=== PATIENT | male | born 1950 | race Asian ===

== ENCOUNTER 2016-12-21 05:36 | Inpatient (IN) | payer MEDICARE, MEDICAID ==
[~2016-12-21] VITALS: Ht 175.3 cm; Wt 72.1 kg
[2016-12-21 05:42] VITALS: BP 171/91
--- NOTE | 2016-12-21 05:42 | Emergency Room Report ---
History of Present Illness General Chief Complaint: Dyspnea/Respdistress Source: EMS Present Illness HPI 66-year-old male presents ED complaining of shortness of breath. Started at the convalescent home around 5 AM today. Her EMS patient was diaphoretic with crackles in both lungs. Hypertensive and tachycardic. Patient has a dialysis shunt in the left arm but does not get regular dialysis. No fevers or chills. No chest pain. No other aggravating relieving factors. Denies any other associated symptoms Allergies: Coded Allergies: No Known Allergies (Unverified , 12/21/16) Patient History Past Medical History: DM, HTN, renal disease Past Surgical History: none Pertinent Family History: none Social History: Denies: alcohol use, drug use, smoking Immunizations: UTD Reviewed Nursing Documentation: PMH: Agreed, PSxH: Agreed Nursing Documentation-PMH Hx Hypertension: Yes Hx Diabetes: Yes Hx Dialysis: Yes - ESRD Review of Systems All Other Systems: negative except mentioned in HPI Physical Exam Vital Signs Date Time Temp Pulse Resp B/P Pulse Ox O2 Delivery O2 Flow Rate FiO2 12/21/16 05:32 97.7 145 31 171/91 95 Non-Rebreather 15.0 Sp02 EP Interpretation: reviewed, normal General Appearance: alert, GCS 15, mild distress Head: normocephalic Eyes: bilateral eye PERRL, bilateral eye normal inspection ENT: normal ENT inspection Neck: full range of motion Respiratory: accessory muscle use, crackles Cardiovascular #1: tachycardia Gastrointestinal: normal inspection Rectal: deferred Genitourinary: no CVA tenderness Musculoskeletal: normal inspection Neurologic: alert, oriented x3, responsive, motor strength/tone normal, sensory intact, speech normal Psychiatric: normal inspection Skin: normal inspection Lymphatic: normal inspection Procedures Critical Care Time Critical Care Time i. I feel this is a highly complex case requiring extensive working including EKG/Rhythm strip, Xray/CT/US, Blood/urine lab work, repeat exams while in ED, and administration of strong opiates/narcotics for pain control, admission to hospital or close patient follow up. Total time: 30 min bedside evaluation and treatment excludes procedures (EKG). Reason for critical care: respiratory distress, hypoxia Possible complications: hypotension, hypertension, OH, shock, arrhythmias, metabolic acidosis, end organ damage, respiratory failure. Interventions: BIPAP, labs, EKG, CXR, Abx Course: patient here with resp distress. crackles in bilateral lung evans. h/o ESRD. tachypneic. tachycardic. started on BIPAP. ABG shows acidosis. leukocytosis, BNP elevated. improved on BIPAP. given abx. Consultations: nursing staff, EMS, family Performed by: Dr Moncada Tolerated well condition = seriousl j. because of unstable vital signs this patient had a condition that could potentially threaten life or limb. I feel this is a critical patient who required my full attention while patient was considered critical. Total Critical Care Time excluding procedures was greater than 35 minutes Medical Decision Making Diagnostic Impression: Primary Impression: Respiratory distress Additional Impression: CHF exacerbation Qualified Codes: I50.9 - Heart failure, unspecified ER Course Hospital Course 66-year-old M presenting to ED with respiratory distress, crackles Differential diagnoses include: Pneumonia, CHF exacerbation, pneumothorax, fluid overload Clinical course Patient placed on stretcher. On vehicle monitor technician with hypoxia on room air and tachycardia. After initial history and physical, I ordered BIPAP. I ordered labs, EKG, chest x-ray, blood cultures Labs -leukocytosis noted, hemoglobin/hematocrit stable, BUN/Cr elevated, lactate okay troponins negative, BNP elevated CXR - bilateral Pulmonary congestion. Iinfiltrate Tachypnea and tachycardia improving with BiPAP. Respiratory status improved. Antibiotics given Case discussed with Dr. Mancini and he agreed to the patient to his service for further care and support I feel this is a highly complex case requiring extensive working including EKG/ Rhythm strip, Xray/CT/US, Blood/urine lab work, repeat exams while in ED, and administration of strong opiates/narcotics for pain control, admission to hospital or close patient follow up. Diagnosis - respiratory distress, CHF exacerbation Patient admitted to [facility] in serious condition Labs Test 12/21/16 05:37 12/21/16 05:40 12/21/16 13:00 12/21/16 16:05 Arterial Blood pH 7.220 (7.350-7.450) 7.370 (7.350-7.450) 7.411 (7.350-7.450) Arterial Blood Partial Pressure CO2 45.4 mmHg (35.0-45.0) 30.2 mmHg (35.0-45.0) 29.8 mmHg (35.0-45.0) Arterial Blood Partial Pressure O2 319.8 mmHg (75.0-100.0) 124.2 mmHg (75.0-100.0) 85.7 mmHg (75.0-100.0) Arterial Blood HCO3 18.2 mmol/L (22.0-26.0) 17.4 mmol/L (22.0-26.0) 18.5 mmol/L (22.0-26.0) Arterial Blood Oxygen Saturation 98.8 % (92.0-98.0) 98.2 % (92.0-98.0) 96.4 % (92.0-98.0) Arterial Blood Base Excess -9.3 -6.7 -5.0 Moy Test Positive Positive Positive White Blood Count 19.5 K/UL (4.8-10.8) Red Blood Count 4.13 M/UL (4.70-6.10) Hemoglobin 12.9 G/DL (14.2-18.0) Hematocrit 39.8 % (42.0-52.0) Mean Corpuscular Volume 96 FL (80-99) Mean Corpuscular Hemoglobin 31.2 PG (27.0-31.0) Mean Corpuscular Hemoglobin Concent 32.4 G/DL (32.0-36.0) Red Cell Distribution Width 13.7 % (11.6-14.8) Platelet Count 351 K/UL (150-450) Mean Platelet Volume 5.6 FL (6.5-10.1) Neutrophils (%) (Auto) % (45.0-75.0) Lymphocytes (%) (Auto) % (20.0-45.0) Monocytes (%) (Auto) % (1.0-10.0) Eosinophils (%) (Auto) % (0.0-3.0) Basophils (%) (Auto) % (0.0-2.0) Differential Total Cells Counted 100 Neutrophils % (Manual) 71 % (45-75) Lymphocytes % (Manual) 22 % (20-45) Monocytes % (Manual) 4 % (1-10) Eosinophils % (Manual) 3 % (0-3) Basophils % (Manual) 0 % (0-2) Band Neutrophils 0 % (0-8) Platelet Estimate Adequate Platelet Morphology Normal Red Blood Cell Morphology Normal Sodium Level 140 mEQ/L (135-145) Potassium Level 4.6 mEQ/L (3.4-4.9) Chloride Level 105 mEQ/L (98-107) Carbon Dioxide Level 20 mEQ/L (20-30) Anion Gap 15 (5-15) Blood Urea Nitrogen 38 mg/dL (7-23) Creatinine 1.7 mg/dL (0.7-1.2) Estimat Glomerular Filtration Rate 40.5 mL/min (>60) Glucose Level 196 mg/dL (74-106) Lactic Acid Level 1.10 mmol/L (0.66-2.22) Calcium Level 8.8 mg/dL (8.6-10.2) Total Bilirubin 0.5 mg/dL (0.0-1.2) Aspartate Amino Transf (AST/SGOT) 49 U/L (5-40) Alanine Aminotransferase (ALT/SGPT) 76 U/L (3-41) Alkaline Phosphatase 345 U/L (40-129) Total Creatine Kinase 41 U/L (38-174) Creatine Kinase MB 2.5 ng/mL (< 6.7) Creatine Kinase MB Relative Index 6.0 Troponin I < 0.30 ng/mL (<=0.30) Pro-B-Type Natriuretic Peptide 8129 pg/mL (0-125) Total Protein 7.7 g/dL (6.6-8.7) Albumin 4.1 g/dL (3.5-5.2) Globulin 3.6 g/dL Albumin/Globulin Ratio 1.1 (1.0-2.7) EKG Diagnostic Results Rate: tachycardiac Rhythm: NSR ST Segments: no acute changes ASA given to the pt in ED: No Rhythm Strip Diag. Results EP Interpretation: yes Rhythm: NSR, no PVC's, no ectopy Chest X-Ray Diagnostic Results Chest X-Ray Ordered: Yes # of Views/Limited/Complete: 1 View EP Interpretation: Yes Interpretation: other - cardiomegaly. ? infiltrate. pulmonary congestion Indication: Shortness of Breath Impression: Other - pulmonary congestion. pneumonia Interpreting ER Provider: Beto Moncada MD Last Vital Signs Date Time Temp Pulse Resp B/P Pulse Ox O2 Delivery O2 Flow Rate FiO2 12/21/16 05:32 97.7 145 31 171/91 95 Non-Rebreather 15.0 Status: improved Disposition: ADMITTED INPATIENT Condition: Serious BETO MONCADA M.D. Dec 21, 2016 05:42
[2016-12-21 05:48] LABS: ABG PCO2 45.4 mmHg (35.0-45.0)
[2016-12-21 05:49] LABS: ABG ALLEN TEST POSITIVE; ABG BASE EXCESS -9.3
[2016-12-21] MEDS ORDERED: VITAMIN B-12250 MCG PO (05:50)
[2016-12-21] MEDS ORDERED: FERROUS SULFAT325 MG ORAL (05:50)
[2016-12-21] MEDS ORDERED: HUMULIN R100 UNIT/1 SUBQ ×2 (05:50→06:09)
[2016-12-21] MEDS ORDERED: ULORIC80 MG ORAL ×2 (05:50→06:09)
[2016-12-21] MEDS ORDERED: TOPROL XL25 MG ORAL (05:50)
[2016-12-21] MEDS ORDERED: PROBIOTIC1 EAC2 PO (05:50)
[2016-12-21] MEDS ORDERED: FOLIC ACID1 MG ORAL ×2 (05:50→06:09)
[2016-12-21] MEDS ORDERED: TAMSULOSIN HCL0.4 MG ORAL (05:50)
[2016-12-21] MEDS ORDERED: LANTUS SOL100 UNIT/1 SUBQ ×2 (05:50→06:09)
[2016-12-21] MEDS ORDERED: VITAMIN B 6 PO (05:50)
[2016-12-21] MEDS ORDERED: PLAVIX75 MG ORAL (05:50)
[2016-12-21] MEDS ORDERED: NEPHRO-VITE RX1 EAC1 PO (05:50)
[2016-12-21] MEDS ORDERED: TRADJENTA5 MG PO ×2 (05:50→06:09)
[2016-12-21] MEDS ORDERED: LYRICA75 M1 ORAL ×2 (05:50→06:09)
[2016-12-21] MEDS ORDERED: LIPITOR20 MG ORAL ×2 (05:50→06:09)
[2016-12-21] MEDS ORDERED: ASPIRIN EC81 MG ORAL ×2 (05:50→06:09)
[2016-12-21] MEDS ORDERED: SODIUM BICARBO650 MG PO (05:57)
[2016-12-21] MEDS ORDERED: ZINC SULFATE220 M1 ORAL (05:57)
[2016-12-21 05:59] LABS: MEAN CORPUSCULAR HEMOGLOBIN 31.2 PG (27.0-31.0); MEAN CORPUSCULAR HGB CONC 32.4 G/DL (32.0-36.0); MEAN CORPUSCULAR VOLUME 96 FL (80-99); MEAN PLATELET VOLUME 5.6 FL (6.5-10.1); PLATELET COUNT 351 K/UL (150-450); RED BLOOD COUNT 4.13 M/UL (4.70-6.10); RED CELL DISTRIBUTION WIDTH 13.7 % (11.6-14.8); WHITE BLOOD COUNT 19.5 K/UL (4.8-10.8)
[2016-12-21] MEDS ORDERED: MAALOX ADVANCE770 ML PO (06:02)
[2016-12-21] MEDS ORDERED: NORCO 5-325 TA1 EACH ORAL (06:02)
[2016-12-21] MEDS ORDERED: LACTULOSE20 GM/301 ORAL (06:02)
[2016-12-21] MEDS ORDERED: ACETAMINOPHEN325 M1 ORAL (06:02)
[2016-12-21] MEDS ORDERED: IRON325 M1 PO (06:09)
[2016-12-21] MEDS ORDERED: NEPHROVITE1 TAB ORAL (06:09)
[2016-12-21] MEDS ORDERED: ACIDOPHILUS1 EAC6 PO (06:09)
[2016-12-21 06:32] LABS: ALBUMIN/GLOBULIN RATIO 1.1 (1.0-2.7); CALCIUM 8.8 mg/dL (8.6-10.2); CREATININE 1.7 mg/dL (0.7-1.2); GLOMERULAR FILTRATION RATE 40.5 mL/min (>60); POTASSIUM 4.6 mEQ/L (3.4-4.9); TOTAL PROTEIN 7.7 g/dL (6.6-8.7)
[2016-12-21 06:33] LABS: TROPONIN I < 0.30 ng/mL (<=0.30)
[2016-12-21 06:43] LABS: CKMB 2.5 ng/mL (< 6.7)
[2016-12-21 06:56] VITALS: BP 138/64
[2016-12-21 07:29] LABS: BAND NEUTROPHILS % (MANUAL) 0 % (0-8); BASOPHILS % (MANUAL) 0 % (0-2); EOSINOPHILS % (MANUAL) 3 % (0-3); LYMPHOCYTES % (MANUAL) 22 % (20-45); NEUTROPHILS % (MANUAL) 71 % (45-75); PLATELET ESTIMATE ADEQUATE; PLATELET MORPHOLOGY NORMAL; TOTAL CELLS COUNTED 100
[2016-12-21 08:00] VITALS: BP 116/76
[2016-12-21 12:00] VITALS: BP 123/69
[2016-12-21] MEDS ORDERED: D5NS 1,000 ML IV SCH (13:00)
[2016-12-21] MEDS ORDERED: Milk of Magnesia 30ml Ud ORAL PRN (13:15)
[2016-12-21 13:18] LABS: ABG BASE EXCESS -6.7; ABG PCO2 30.2 mmHg (35.0-45.0)
[2016-12-21 13:19] LABS: ABG ALLEN TEST POSITIVE
[2016-12-21] MEDS ORDERED: Vancomycin 1250mg/D5W 275ml IVPB SCH ×2 (13:30)
[2016-12-21] MEDS: Aspirin Baby 81mg ORAL SCH (13:52)
[2016-12-21] MEDS: Metolazone 5mg tab ORAL ONE ×2 (14:51→15:00)
[2016-12-21] MEDS ORDERED: Piperacillin/Tazobactam 3.375 GM in D5W 110 ML IVPB SCH (15:00)
[2016-12-21] MEDS ORDERED: Norco 5mg/325mg tab ORAL PRN (15:15)
[2016-12-21 16:00] VITALS: BP 132/73
[2016-12-21 16:21] LABS: ABG ALLEN TEST POSITIVE; ABG PCO2 29.8 mmHg (35.0-45.0)
[2016-12-21] MEDS: NovoLOG Insulin Flexpen SUBQ SCH ×2 (16:43→20:52)
[2016-12-21] MEDS: DuoNeb 0.5-3(2.5)mg/3ml neb HHN SCH ×3 (16:53→23:28)
[2016-12-21] MEDS: Nitroglycerin 2% oint pkt TOPIC SCH (17:21)
[2016-12-21] MEDS: Lyrica 75mg cap ORAL SCH (17:22)
--- NOTE | 2016-12-21 19:22 | Consultation ---
Consult Note Assessment/Plan Brief nephrology consult: Impression: 1) CKD IV most likely due to diabetic nephropathy 2) Previous [place] has recovered 3) Acute pulmonary edema 4) S/P recent PCI of coronaries Plan: Serial cardiac enzymes Lasix 80 mg IV Q8 x3 TTE UA #[id number] WENDI PONCE Dec 21, 2016 19:22
--- NOTE | 2016-12-21 19:45 | Consultation ---
DATE OF CONSULTATION: 12/21/2016 CONSULTING PHYSICIAN: Livan Mancini M.D. REFERRING PHYSICIAN: Jacob Camp M.D. REASON FOR CONSULTATION: Congestive heart failure in the setting of ischemic cardiomyopathy. HISTORY OF PRESENT ILLNESS: This is a 66-year-old English male. He has severe coronary disease and apparently had a myocardial infarction several months ago. He had a complicated percutaneous coronary intervention of several vessels. He developed heart failure and renal failure. He was started on hemodialysis. He was then discharged to a [place] [facility] for [facility]. Subsequently, he apparently was hospitalized at [facility] and his renal function improved. He has been off hemodialysis since with creatinine levels in the range of 1.5 to 2.5. The patient started smoking again several days ago at the [place] [facility]. Today, he developed shortness of breath and was transferred to the emergency room here. He had no chest pain. No fevers. No chills. No sputum production, but was significantly acidotic and hypoxic and placed on BiPAP support. PAST MEDICAL HISTORY: 1. Insulin-requiring diabetes mellitus. 2. Diabetic neuropathy. 3. Chronic kidney disease with prior history of hemodialysis. 4. He has an AV fistula. 5. COPD. 6. Hypertension. 7. Coronary artery disease. 8. Compression fracture. 9. Hyperlipidemia. 10. BPH. ALLERGIES: None known. FAMILY HISTORY: Noncontributory. SOCIAL HISTORY: He is . He does have a smoking history, 50-pack years estimate. No alcohol or substance abuse. He has prior advanced directives for DNR, but has revoked it recently due to his improved condition. REVIEW OF SYSTEMS: No fevers or chills. No history of retinopathy. No history of seizures or stroke. He is on anti-lipid drugs. He is a diabetic, on insulin. There is a prior history of dialysis. He has not had any change in bowel habits. He has had prior coronary stenting as noted above and is on dual anti-platelet therapy. He has not been on steroids, but has been on bronchodilators in the past. PHYSICAL EXAMINATION: VITAL SIGNS: Blood pressure initially 171/91, pulse 145, respiratory rate 31, and afebrile. Presently, blood pressure 116/76, pulse 97, respiratory rate 21, and afebrile. NECK: Jugular venous pressure elevated. LUNGS: With bilateral rales. CARDIAC: Regular rhythm and rate. Normal S1 and S2 with a fourth heart sound. ABDOMEN: Soft and nontender. EXTREMITIES: Palpable bruit over the left upper extremity. Extremities with no edema. NEUROLOGIC: Symmetric strength. LABORATORY AND DIAGNOSTIC DATA: BUN 38, creatinine 1.7, potassium 4.6, alkaline phosphatase 345, AST and ALT 49/76. Pro-natriuretic peptide 8129. Albumin 4.1. Troponin negative. Lactic acid 1.1. White count 19.5 and hemoglobin 12.9. ABG 7.22/45/319. IMPRESSION: 1. Acute respiratory insufficiency. 2. Hypoxia. 3. Acute on chronic respiratory acidosis. 4. Chronic obstructive pulmonary disease with exacerbation. 5. Possible pneumonia. 6. Acute on chronic diastolic congestive heart failure. 7. Secondary sinus tachycardia. 8. Malignant range hypertension, improving. 9. History of coronary artery disease with prior coronary stenting. 10. Insulin-requiring diabetes mellitus with complications. 11. History of renal failure, on hemodialysis. PLAN: 1. BiPAP support. 2. Diuresis. 3. Insulin coverage. 4. Empiric antibiotics. 5. Bronchodilators. 6. DVT prophylaxis. 7. Respiratory hygiene. 8. Continue dual antiplatelet therapy, statin drug, and beta-blockade. 9. Abdominal ultrasound. 10. Monitor renal parameters and volume status closely. Livan Mancini M.D. DR: TANMAY JOB#: [id number] CC:
[2016-12-21 20:00] VITALS: BP 126/65
--- NOTE | 2016-12-21 20:30 | History and Physical Report ---
DATE OF ADMISSION: 12/21/2016 CHIEF COMPLAINT: Shortness of breath and respiratory failure HISTORY OF PRESENT ILLNESS: The patient is a 66-year-old male. He has a history of hypertensive heart disease, chronic kidney disease, and ischemic cardiomyopathy. He was transferred with complaints of sudden onset of shortness of breath. The patient has a history of end-stage renal disease, but recently was taken off of dialysis. He has a history of ischemic cardiomyopathy, status post 6 stents. On the day of admission, he became suddenly short of breath, was transferred by paramedics to [facility]. There in the emergency room, he was placed on BiPAP, he had x-ray evidence of either pneumonia or congestive heart failure. He has been started on broad-spectrum IV antibiotic therapy. He is now admitted for further evaluation and care. He is currently on BiPAP, but appears comfortable. He denies any fevers or chills. He has had a mild nonproductive cough. PAST MEDICAL HISTORY: As above. PAST SURGICAL HISTORY: Includes a history of left AV fistula. CURRENT MEDICATIONS: Reconciled and reviewed. ALLERGIES: None. FAMILY HISTORY: None. SOCIAL HISTORY: Negative for tobacco, ethanol, or drugs. REVIEW OF SYSTEMS: General: No fever or chills. HEENT: No headaches or visual changes. Cardiopulmonary: No chest pain. Positive shortness of breath. No heart palpitations. Gastrointestinal: No nausea or vomiting. Genitourinary: No urgency or frequency. Musculoskeletal: No muscular pain or swelling. Neurologic: No evidence of seizures. PHYSICAL EXAMINATION: VITAL SIGNS: Temperature 97.7, pulse 92, respirations 21, and blood pressure 123/69. GENERAL: The patient is a well-developed male, in no apparent distress. He is awake, alert, and oriented x4. His pupils are equal, round, and reactive to light. Oropharynx clear. NECK: Supple. There is no jugular venous distention. HEART: Regular rate and rhythm. LUNGS: With significantly diminished breath sounds at the bases. ABDOMEN: Soft, nontender, and nondistended. EXTREMITIES: Without clubbing or cyanosis. There is a left upper extremity AV fistula. LABORATORY DATA: The white count was 20,000, hemoglobin 12. ABG showed a pH of 7.37, PCO2 of 30, PO2 of 124, bicarbonate of 17, and O2 saturation of 98%. Sodium is 140, potassium 4.6, and creatinine is 1.7. Natriuretic peptide level is 8000. AST was 49 and ALT was 76. ASSESSMENT: This is an elderly male, admitted with history of ischemic cardiomyopathy, chronic kidney disease, and hypertension, admitted with shortness of breath and respiratory failure secondary to pneumonia, congestive heart failure, or some combination of both. PLAN: Intravenous antibiotics. Cautious diuresis. BiPAP as needed. Follow up cultures. Continue respiratory treatments. Cardiology consultation. We will check an echo. Monitor serial enzymes. Jacob Camp M.D. DR: BUDDY JOB#: [id number] CC:
[2016-12-21] MEDS: Atorvastatin 20mg tab ORAL SCH (20:52)
[2016-12-21] MEDS: Tamsulosin 0.4mg cap ORAL SCH (20:52)
[2016-12-21 21:32] LABS: TROPONIN I < 0.30 ng/mL (<=0.30)
[2016-12-22] VITALS: BP 124/61
--- NOTE | 2016-12-22 00:15 | Consultation ---
DATE OF CONSULTATION: 12/21/2016 NEPHROLOGY CONSULTATION CONSULTING PHYSICIAN: Timoteo Clement M.D. REASON OF CONSULT: The patient with some underlying kidney dysfunction, has presented with some increasing shortness of breath. HISTORY OF PRESENT ILLNESS: This is a very pleasant 66-year-old Spanish gentleman that I had privilege to see during his admission at [facility] at beginning of 11/2016. He is a resident of convalescent home. At this point, he is getting rehabilitation in the convalescent setting and as a matter of fact, [facility] for management of high risk and multivessel coronary artery disease. He underwent coronary artery stent placement mainly in the LAD and he was also found to have an ejection fraction of about 27%. At [facility], he underwent a PermCath placement and AV fistula creation on the left arm after he was found to have worsening kidney function. Apparently, he had a serum creatinine in the range of 4 to 5 that he requires dialysis, however, by the time he came to the [facility], his serum creatinine was hovering around 2.3 to 2.4 mg/dL. We decided not to dialyze him and essentially a renal scan was performed on him and his GFR was about 21 mL per minute. So, PermCath was discontinued before he is discharged from the hospital. However, he was in his usual state of health until the manager digital today when he started to have increasing shortness of breath associated with some orthopnea and subsequently he has been brought to the emergency room of [facility] where he was found to have crackles in the lungs and some increasing shortness of breath. He was put on BiPAP initially and now he is off of BiPAP. Chest x-ray has shown evidence of apical redistribution of the vessels compatible with pulmonary edema. He was given 40 mg of intravenous Lasix and he has been admitted to the PCU and his troponin was less than 0.03. EKG is showing evidence of old anteroseptal myocardial infarction, however, there was no signs of acute ischemic changes. His BNP was also elevated at 8126. He was on Celebrex prior to his admission at [facility] and we discontinued Celebrex, which has probably had some affect on his worsening kidney function. PAST MEDICAL HISTORY: Significant for longstanding type 2 diabetes mellitus insulin requiring, hypertension, anemia, degenerative joint disease of the lumbar spine, and underlying chronic kidney disease, most likely due to diabetic nephropathy probably stage IV. He also has had carotid artery disease. He also has multivessel coronary artery disease as well as ischemic cardiomyopathy. PAST SURGICAL HISTORY: Status post lumbar spine decompression surgery, status post right carotid endarterectomy, status post left arm AV fistula creation for hemodialysis access, status post PermCath placement and status post subsequent removal. SOCIAL HISTORY: He was an alcohol abuser in the past. He is a nonsmoker. Denies any drug abuse. He has a very supportive daughter, who is living in a rehabilitation facility. FAMILY HISTORY: Noncontributory. ALLERGIES: NKDA. MEDICATIONS: 1. Aspirin 81 mg p.o. daily. 2. Lipitor 20 mg p.o. daily. 3. Plavix 75 mg p.o. daily. 4. Vitamin B12 250 mcg p.o. daily. 5. Uloric 80 mg p.o. daily. 6. Ferrous sulfate 325 mg p.o. daily. 7. Folic acid 1 mg p.o. daily. 8. Teller 5/325 one tablet p.o. every 4 to 6 hours as needed. 9. Lantus insulin 10 units subcutaneously at bedtime. 10. Lactobacillus one capsule p.o. twice a day. 11. Tradjenta 5 mg daily. 12. Metoprolol XL 25 mg p.o. daily. 13. Lyrica 75 mg p.o. twice a day. 14. Sodium bicarbonate 650 mg p.o. twice a day. 15. Flomax 0.4 mg p.o. daily. 16. Zinc sulfate 220 mg p.o. daily. 17. Nephro-Milady one tablet p.o. daily. REVIEW OF SYSTEMS: General: He has not had any significant weight change. Cardiovascular: He has had a sudden onset of dyspnea and orthopnea today manager digital. No chest pain. No radiation into the arms. Respiratory: Denies any cough, purulent sputum production, hemoptysis, or wheezing. Gastrointestinal: Denies any nausea, vomiting, diarrhea, melena, or hematochezia. Urinary: Denies any urinary foaminess, hematuria, or dysuria. Musculoskeletal: Denies any arthralgia or myalgia. Hematological: Denies any easy bruising or easy bleeding. Endocrine: Blood sugars in the range of 120s. The remainder of the review of the systems has been essentially negative. PHYSICAL EXAMINATION: GENERAL: He does not seem to be in much acute distress. VITAL SIGNS: Blood pressure is 132/73, pulse of 107, respirations 25, and temperature 98.5. HEENT: Head is atraumatic. Eyes, pupils are reactive to light. No evidence of papilledema. Ears canals are clear. Tympanic membranes are intact. Nose, nares are patent without any nasal discharge. Throat without inflammation or exudate. NECK: Supple. Jugular venous distention is somewhat increased. No cervical adenopathy. No thyromegaly. HEART: Regular rhythm. Tachycardic. LUNGS: There is few expiratory wheezes bilaterally and few crackles at both bases. ABDOMEN: Supple. Bowel sounds positive. There is hepatomegaly about 4 cm below the rib cage. EXTREMITIES: Lower extremity shows 1+ pedal edema. NEUROLOGICAL: Cranial nerves are intact. There are decreased deep tendon reflexes in both lower extremities. LABORATORY DATA: Laboratory data is showing a sodium of 140, potassium 4.6, chloride 105, carbon dioxide 20, BUN is 38, and creatinine 1.7. Lactic acid 1.1. ProBNP 8129. Troponin less than 0.30. Albumin is 4.1. WBC is 19.5, hemoglobin 12.9, hematocrit 39.8, and platelets of 351,000. IMPRESSION: 1. Chronic kidney disease, most likely due to diabetic nephropathy. 2. Previous acute kidney injury, which has recovered. 3. Acute pulmonary edema. 4. Status post recent percutaneous coronary intervention of coronary arteries. 5. Ischemic cardiomyopathy. PLAN: We are going to do serial cardiac enzymes. Lasix 80 mg intravenous q.8 hours x3 is going to be tried on him. Probably a 2D echo is warranted and urinalysis is going to be obtained. Timoteo Clement M.D. DR: ROMARIO JOB#: [id number] CC: RADHA
[2016-12-22] MEDS: DuoNeb 0.5-3(2.5)mg/3ml neb HHN SCH ×6 (03:13→23:43)
[2016-12-22 04:00] VITALS: BP 117/73
[2016-12-22] MEDS: NovoLOG Insulin Flexpen SUBQ SCH ×4 (06:30→21:13)
[2016-12-22 06:32] LABS: BASOPHILS % (AUTO) 0.8 % (0.0-2.0); LYMPHOCYTES % (AUTO) 17.7 % (20.0-45.0); MEAN CORPUSCULAR HEMOGLOBIN 30.5 PG (27.0-31.0); MEAN CORPUSCULAR HGB CONC 31.8 G/DL (32.0-36.0); MEAN CORPUSCULAR VOLUME 96 FL (80-99); MEAN PLATELET VOLUME 5.6 FL (6.5-10.1); MONOCYTES % (AUTO) 7.3 % (1.0-10.0); NEUTROPHILS % (AUTO) 69.1 % (45.0-75.0); PLATELET COUNT 258 K/UL (150-450); RED BLOOD COUNT 3.31 M/UL (4.70-6.10); RED CELL DISTRIBUTION WIDTH 13.6 % (11.6-14.8); WHITE BLOOD COUNT 9.9 K/UL (4.8-10.8)
[2016-12-22] MEDS: Nitroglycerin 2% oint pkt TOPIC SCH ×3 (06:58→17:59)
[2016-12-22 07:13] LABS: CALCIUM 8.6 mg/dL (8.6-10.2); CREATININE 2.5 mg/dL (0.7-1.2); MAGNESIUM 1.6 mg/dL (1.7-2.5); POTASSIUM 4.6 mEQ/L (3.4-4.9); TOTAL PROTEIN 6.7 g/dL (6.6-8.7); URIC ACID 3.4 mg/dL (3.0-7.5)
[2016-12-22 07:17] LABS: TROPONIN I < 0.30 ng/mL (<=0.30)
[2016-12-22 08:00] VITALS: BP 117/66
[2016-12-22] MEDS: Lyrica 75mg cap ORAL SCH ×2 (08:58→17:59)
[2016-12-22] MEDS: Aspirin Baby 81mg ORAL SCH (09:31)
--- NOTE | 2016-12-22 09:54 | Nephrology Progress Note ---
Assessment/Plan Assessment 1) Acute systolic CHF 2) Ischemic Cardiomyopathy 3) CKD IV with baseline creat of 2.5 4) DM Plan: Continue diuresis for now Labs in AM Subjective Subjective He is having diuresis, feeling better, no c/p, still some orthopnea Objective Objective Last 24 Hour Vital Signs Date Time Temp Pulse Resp B/P Pulse Ox O2 Delivery O2 Flow Rate FiO2 12/22/16 08:57 98 117/66 12/22/16 08:00 98.0 98 23 117/66 98 Simple Mask 2.0 12/22/16 07:35 98 20 100 Nasal Cannula 2.0 28 12/22/16 07:30 98 18 96 Nasal Cannula 2.0 28 12/22/16 06:58 117/73 12/22/16 04:00 98.6 95 20 117/73 100 12/22/16 03:56 102 12/22/16 03:20 85 20 100 Nasal Cannula 3.0 12/22/16 03:13 102 23 98 Nasal Cannula 3.0 12/22/16 00:00 98.4 98 20 124/61 98 Room Air 12/21/16 23:35 105 12/21/16 23:31 92 20 100 Nasal Cannula 3.0 12/21/16 23:28 99 23 98 Nasal Cannula 3.0 12/21/16 20:00 98.4 100 18 126/65 97 12/21/16 19:42 99 20 100 Nasal Cannula 3.0 12/21/16 19:32 101 23 98 Nasal Cannula 3.0 12/21/16 19:22 104 12/21/16 17:21 135/76 12/21/16 16:54 100 20 100 Nasal Cannula 3.0 12/21/16 16:44 103 23 100 Facial 40 12/21/16 16:44 103 23 100 Bi-pap 40 12/21/16 16:00 98.5 107 25 132/73 97 Nasal Cannula 3.0 12/21/16 15:21 104 12/21/16 15:08 102 18 12/21/16 13:52 90 123/69 12/21/16 12:22 100 12/21/16 12:16 93 20 100 Facial 100 12/21/16 12:00 97.7 92 21 123/69 100 Nasal Cannula 3.0 12/21/16 11:39 95 12/21/16 11:11 93 100 3.0 12/21/16 09:53 100 Intake and Output 12/21/16 12/22/16 19:00 07:00 Intake Total 530.000 ml 200 ml Output Total 400 ml 1150 ml Balance 130.000 ml -950 ml Intake Oral 200 ml 200 ml IV Total 330.000 ml Output Urine Total 400 ml 1150 ml Laboratory Tests 12/21/16 13:00: Arterial Blood pH 7.370, Arterial Blood Partial Pressure CO2 30.2L, Arterial Blood Partial Pressure O2 124.2H, Arterial Blood HCO3 17.4L, Arterial Blood Oxygen Saturation 98.2H, Arterial Blood Base Excess -6.7, Moy Test Positive 12/21/16 16:05: Arterial Blood pH 7.411, Arterial Blood Partial Pressure CO2 29.8L, Arterial Blood Partial Pressure O2 85.7, Arterial Blood HCO3 18.5L, Arterial Blood Oxygen Saturation 96.4, Arterial Blood Base Excess -5.0, Moy Test Positive 12/21/16 20:45: Troponin I < 0.30 12/21/16 23:30: Urine Color [Pending], Urine Appearance [Pending], Urine pH [Pending], Urine Specific [place] [Pending], Urine Protein [Pending], Urine Glucose (UA) [Pending ], Urine Ketones [Pending], Urine Occult Blood [Pending], Urine Nitrite [Pending ], Urine Bilirubin [Pending], Urine Urobilinogen [Pending], Urine Leukocyte Esterase [Pending] 12/22/16 04:15: White Blood Count 9.9, Red Blood Count 3.31L, Hemoglobin 10.1L, Hematocrit 31.8L , Mean Corpuscular Volume 96, Mean Corpuscular Hemoglobin 30.5, Mean Corpuscular Hemoglobin Concent 31.8L, Red Cell Distribution Width 13.6, Platelet Count 258, Mean Platelet Volume 5.6L, Neutrophils (%) (Auto) 69.1, Lymphocytes (%) (Auto) 17.7L, Monocytes (%) (Auto) 7.3, Eosinophils (%) (Auto) 5.0H, Basophils (%) (Auto) 0.8, Sodium Level 139, Potassium Level 4.6, Chloride Level 103, Carbon Dioxide Level 19L, Anion Gap 17H, Blood Urea Nitrogen 49H, Creatinine 2.5H, Estimat Glomerular Filtration Rate 26.0, Glucose Level 122H, Uric Acid 3.4, Calcium Level 8.6, Magnesium Level 1.6L, Total Bilirubin 0.4, Aspartate Amino Transf (AST/SGOT) 48H, Alanine Aminotransferase (ALT/SGPT) 50H, Alkaline Phosphatase 253H, Troponin I < 0.30, Pro-B-Type Natriuretic Peptide 28167B, Total Protein 6.7, Albumin 3.4L, Globulin 3.3, Albumin/Globulin Ratio 1.0 Height (Feet): 5 Height (Inches): 9.00 Weight (Pounds): 159 General Appearance: WD/WN, no apparent distress, alert EENT: PERRL/EOMI Neck: non-tender, supple Cardiovascular: regular rhythm, JVD - high Respiratory/Chest: crackles/rales, expiratory wheezing Abdomen: normal bowel sounds, non tender, hepatomegaly Extremities: trace edema 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
[2016-12-22 10:03] LABS: APPEARANCE,URINE CLEAR; KETONES,URINE NEGATIVE (NEGATIVE); LEUKOCYTE ESTERASE ,URINE NEGATIVE (NEGATIVE); NITRITE,URINE NEGATIVE (NEGATIVE); PH,URINE 5 (4.5-8.0); PROTEIN,URINE 2+ (NEGATIVE); UROBILINOGEN,URINE NORMAL MG/DL (0.0-1.0)
[2016-12-22 10:23] LABS: BACTERIA,URINE OCCASIONAL /HPF; SQUAMOUS EPITHELIAL CELL,UR FEW /LPF (NONE/OCC); WBC,URINE 0-2 /HPF (0 - 0)
[2016-12-22 10:24] LABS: FINE GRANULAR CASTS,URINE 0-2 /LPF
[2016-12-22 12:00] VITALS: BP 114/59
--- NOTE | 2016-12-22 12:00 | Diagnostic Imaging Report ---
Indications: Elevated hepatic and renal function tests Technique: Transabdominal real-time grayscale and duplex Doppler imaging of the upper abdomen and retroperitoneum was performed. Findings: Comparison: None. Liver normal size and surface contour, parenchymal echogenicity. No focal lesions. Gallbladder contains a nodular focus hypoechoic nodular material. No obvious stone.. No mural thickening or adjacent fluid collections. Sonographic Flower sign negative.. Bile ducts normal caliber. Common bile duct 6 mm. Pancreas os portions unremarkable. Spleen unremarkable. Right kidney unremarkable. Left kidney unremarkable. Abdominal aorta, intrahepatic portion of inferior vena cava patent, normal caliber. Duplex Doppler imaging demonstrates antegrade flow in splenic, portal, hepatic veins. No ascites. Bilateral pleural effusions. IMPRESSION: Gallbladder sludge Bilateral pleural effusions Otherwise negative
--- NOTE | 2016-12-22 13:39 | General Progress Note ---
Assessment/Plan Problem List: (1) Respiratory distress ICD Codes: R06.00 - Dyspnea, unspecified SNOMED: 222059828 (2) CHF exacerbation ICD Codes: I50.9 - Heart failure, unspecified SNOMED: 63869215 Qualifiers: Qualified Codes: I50.9 - Heart failure, unspecified Status: stable Assessment/Plan diuresis monitor cxr cardiac rx abx dc planning soon if continued improvement Subjective ROS Limited/Unobtainable: No Constitutional: Reports: malaise, weakness HEENT: Reports: no symptoms Cardiovascular: Reports: no symptoms Respiratory: Reports: no symptoms Gastrointestinal/Abdominal: Reports: no symptoms Genitourinary: Reports: no symptoms Neurologic/Psychiatric: Reports: no symptoms Endocrine: Reports: no symptoms Hematologic/Lymphatic: Reports: anemia Allergies: Coded Allergies: No Known Allergies (Unverified , 12/21/16) All Systems: reviewed and negative except above Subjective feels better. off bipap. on iv abx. denies cp/sob Objective Last 24 Hour Vital Signs Date Time Temp Pulse Resp B/P Pulse Ox O2 Delivery O2 Flow Rate FiO2 12/22/16 12:00 98.0 104 24 114/59 100 Nasal Cannula 2.0 12/22/16 11:38 98 20 100 Nasal Cannula 2.0 28 12/22/16 11:37 111/55 12/22/16 11:30 97 20 97 Nasal Cannula 2.0 28 12/22/16 08:57 98 117/66 12/22/16 08:00 98.0 98 23 117/66 98 Simple Mask 2.0 12/22/16 08:00 98 12/22/16 07:35 98 20 100 Nasal Cannula 2.0 12/22/16 07:30 98 18 96 Nasal Cannula 2.0 28 12/22/16 06:58 117/73 12/22/16 04:00 98.6 95 20 117/73 100 12/22/16 03:56 102 12/22/16 03:20 85 20 100 Nasal Cannula 3.0 12/22/16 03:13 102 23 98 Nasal Cannula 3.0 12/22/16 00:00 98.4 98 20 124/61 98 Room Air 12/21/16 23:35 105 12/21/16 23:31 92 20 100 Nasal Cannula 3.0 12/21/16 23:28 99 23 98 Nasal Cannula 3.0 12/21/16 20:00 98.4 100 18 126/65 97 12/21/16 19:42 99 20 100 Nasal Cannula 3.0 12/21/16 19:32 101 23 98 Nasal Cannula 3.0 12/21/16 19:22 104 12/21/16 17:21 135/76 12/21/16 16:54 100 20 100 Nasal Cannula 3.0 12/21/16 16:44 103 23 100 Facial 40 12/21/16 16:44 103 23 100 Bi-pap 40 12/21/16 16:00 98.5 107 25 132/73 97 Nasal Cannula 3.0 12/21/16 15:21 104 12/21/16 15:08 102 18 12/21/16 13:52 90 123/69 Intake and Output 12/21/16 12/22/16 19:00 07:00 Intake Total 530.000 ml 200 ml Output Total 400 ml 1150 ml Balance 130.000 ml -950 ml Intake Oral 200 ml 200 ml IV Total 330.000 ml Output Urine Total 400 ml 1150 ml Laboratory Tests 12/21/16 16:05: Arterial Blood pH 7.411, Arterial Blood Partial Pressure CO2 29.8L, Arterial Blood Partial Pressure O2 85.7, Arterial Blood HCO3 18.5L, Arterial Blood Oxygen Saturation 96.4, Arterial Blood Base Excess -5.0, Moy Test Positive 12/21/16 20:45: Troponin I < 0.30 12/21/16 23:30: Urine Color Pale yellow, Urine Appearance Clear, Urine pH 5, Urine Specific [place] 1.015, Urine Protein 2+H, Urine Glucose (UA) 3+H, Urine Ketones Negative , Urine Occult Blood Negative, Urine Nitrite Negative, Urine Bilirubin Negative , Urine Urobilinogen Normal, Urine Leukocyte Esterase Negative, Urine RBC 2-4H, Urine WBC 0-2, Urine Squamous Epithelial Cells Few, Urine Bacteria Occasional, Urine Fine Granular Casts 0-2H 12/22/16 04:15: Troponin I < 0.30, White Blood Count 9.9, Red Blood Count 3.31L, Hemoglobin 10.1L, Hematocrit 31.8L, Mean Corpuscular Volume 96, Mean Corpuscular Hemoglobin 30.5, Mean Corpuscular Hemoglobin Concent 31.8L, Red Cell Distribution Width 13.6, Platelet Count 258, Mean Platelet Volume 5.6L, Neutrophils (%) (Auto) 69.1, Lymphocytes (%) (Auto) 17.7L, Monocytes (%) (Auto) 7.3, Eosinophils (%) (Auto) 5.0H, Basophils (%) (Auto) 0.8, Sodium Level 139, Potassium Level 4.6, Chloride Level 103, Carbon Dioxide Level 19L, Anion Gap 17H , Blood Urea Nitrogen 49H, Creatinine 2.5H, Estimat Glomerular Filtration Rate 26.0, Glucose Level 122H, Uric Acid 3.4, Calcium Level 8.6, Magnesium Level 1.6L , Total Bilirubin 0.4, Aspartate Amino Transf (AST/SGOT) 48H, Alanine Aminotransferase (ALT/SGPT) 50H, Alkaline Phosphatase 253H, Pro-B-Type Natriuretic Peptide 72482L, Total Protein 6.7, Albumin 3.4L, Globulin 3.3, Albumin/Globulin Ratio 1.0 Height (Feet): 5 Height (Inches): 9.00 Weight (Pounds): 159 General Appearance: WD/WN, alert Neck: non-tender, normal alignment, supple, normal inspection Cardiovascular: normal rate, regular rhythm Respiratory/Chest: lungs clear Abdomen: normal bowel sounds, non tender, soft, no organomegaly Edema: no edema noted Arm (L), no edema noted Arm (R), no edema noted Leg (L), no edema noted Leg (R), no edema noted Pedal (L), no edema noted Pedal (R), no edema noted 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
[2016-12-22] MEDS ORDERED: Tubing IV Secondary IV ONE (14:36)
[2016-12-22] MEDS ORDERED: NS 275ml ONE (14:36)
[2016-12-22 16:00] VITALS: BP 106/64
[2016-12-22 20:00] VITALS: BP 120/70
[2016-12-22] MEDS: Tamsulosin 0.4mg cap ORAL SCH (21:08)
[2016-12-22] MEDS: Atorvastatin 20mg tab ORAL SCH (21:08)
--- NOTE | 2016-12-22 23:45 | Progress Note ---
CARDIOLOGY PROGRESS NOTE DATE: 12/22/2016 SUBJECTIVE: The patient has less shortness of breath. He is off BiPAP support. He is responding well to diuretics. Monitored rhythm is sinus and sinus tachycardia. OBJECTIVE: VITAL SIGNS: Blood pressure 114/59, pulse 104, and respirations 24. Afebrile. NECK: Jugular venous pressure is still elevated. LUNGS: Few rales. CARDIAC: Regular rhythm rate. Normal S1, S2 with a fourth heart sound. ABDOMEN: Soft. EXTREMITIES: With trace edema. LABORATORY DATA: Cultures remain negative. White count down to 9.9, hemoglobin 10.1. Potassium 4.6, BUN 49, and creatinine 2.5. Bicarb 19. Pro-natriuretic peptide is 14,000. IMPRESSION: 1. Acute on chronic systolic congestive heart failure. 2. Acute on chronic renal failure. 3. Probable pneumonia. 4. Acute on chronic respiratory acidosis, recovered. 5. Chronic kidney disease, stage 4. 6. Ischemic cardiomyopathy with recent history of coronary stenting PLAN: 1. Continue diuresis. 2. Monitor renal parameters. 3. Replace electrolytes as needed. 4. DVT prophylaxis. 5. Titrate anti-ischemic and anti-failure regimen for optimal clinical parameters. Livan Mancini M.D. DR: SIOMARA JOB#: [id number] CC:
[2016-12-23] VITALS: BP 119/65
[2016-12-23] MEDS: DuoNeb 0.5-3(2.5)mg/3ml neb HHN SCH ×4 (03:00→14:48)
[2016-12-23 04:00] VITALS: BP 119/65
[2016-12-23] MEDS: Nitroglycerin 2% oint pkt TOPIC SCH ×2 (06:45→12:00)
[2016-12-23] MEDS: NovoLOG Insulin Flexpen SUBQ SCH ×2 (06:47→11:59)
[2016-12-23 07:59] LABS: ALBUMIN/GLOBULIN RATIO 1.1 (1.0-2.7); CREATININE 2.4 mg/dL (0.7-1.2); GLOMERULAR FILTRATION RATE 27.2 mL/min (>60); POTASSIUM 3.5 mEQ/L (3.4-4.9); TOTAL PROTEIN 6.9 g/dL (6.6-8.7)
[2016-12-23 08:00] VITALS: BP 125/61
[2016-12-23] MEDS ORDERED: NITRO-BID1 GM TOPIC (08:47)
[2016-12-23] MEDS ORDERED: FUROSEMIDE40 MG ORAL (08:47)
[2016-12-23] MEDS: Aspirin Baby 81mg ORAL SCH (09:11)
[2016-12-23] MEDS: Lyrica 75mg cap ORAL SCH (09:15)
--- NOTE | 2016-12-23 10:49 | Diagnostic Imaging Report ---
Indications: COUGH Technique: AP chest Findings: Comparison: 12/21/16 Inspiratory effort has improved. Cardiomegaly, pulmonary vascular redistribution, bilateral interstitial infiltrates, bibasal pleural effusions persist, latter apparently increased.. Remaining findings unchanged. IMPRESSION: Persistent bilateral congestive changes with apparent increase in bibasilar pleural effusions
[2016-12-23 12:00] VITALS: BP 129/62
--- NOTE | 2016-12-23 12:00 | Discharge Summary ---
DATE OF ADMISSION: 12/21/2016 DATE OF DISCHARGE: 12/23/2016 ADMISSION DIAGNOSES: 1. Congestive heart failure exacerbation. 2. Ischemic cardiomyopathy. 3. Chronic kidney disease. 4. Hypertension. DISCHARGE DIAGNOSES: 1. Congestive heart failure exacerbation. 2. Ischemic cardiomyopathy. 3. Chronic kidney disease. 4. Hypertension. HOSPITAL COURSE: The patient is a pleasant male, admitted with complaints of CHF and pulmonary edema. He was initially placed on BiPAP. He was quickly diuresed. Enzymes were negative. On discharge, the patient was significantly improved. He is to be discharged back to group home facility. He will follow up with his PMD there. DISCHARGE MEDICATIONS: Please see discharge for discharge medications. DIET: Cardiac diet. ACTIVITY: Ad-Linda. FOLLOWUP: The patient will follow up in one to two days by his PMD. Jacob Camp M.D. DR: AYO JOB#: [id number] CC:
--- NOTE | 2016-12-23 13:29 | Nephrology Progress Note ---
Assessment/Plan Assessment 1) Acute systolic CHF 2) Ischemic Cardiomyopathy 3) CKD IV with baseline creat of 2.5 4) DM Plan: Ok to discharge Will start lasix 80 mg po daily F/U with me as O/P Subjective Subjective He is having diuresis, feeling much better, less sob Objective Objective Last 24 Hour Vital Signs Date Time Temp Pulse Resp B/P Pulse Ox O2 Delivery O2 Flow Rate FiO2 12/23/16 12:00 129/62 12/23/16 12:00 98.3 112 22 129/62 95 Room Air 12/23/16 11:14 95 16 99 Nasal Cannula 2.0 12/23/16 11:13 97 16 97 Nasal Cannula 2.0 12/23/16 11:13 2.0 12/23/16 09:14 97 125/61 12/23/16 08:54 3.0 12/23/16 08:00 97.7 97 23 125/61 100 12/23/16 07:42 98 16 99 Nasal Cannula 2.0 12/23/16 07:30 99 16 98 Nasal Cannula 2.0 12/23/16 06:45 119/68 12/23/16 04:00 97.2 96 16 119/65 99 Nasal Cannula 2.0 28 12/23/16 04:00 96 12/23/16 03:26 Nasal Cannula 2.0 12/23/16 03:26 Nasal Cannula 2.0 12/23/16 00:00 98.1 102 16 119/65 99 Nasal Cannula 2.0 28 12/22/16 23:54 103 16 99 Nasal Cannula 2.0 28 12/22/16 23:44 98 15 98 Nasal Cannula 2.0 12/22/16 20:00 105 12/22/16 20:00 97.3 111 18 120/70 100 Nasal Cannula 2.0 28 12/22/16 19:20 102 16 100 Nasal Cannula 2.0 28 12/22/16 19:04 101 16 99 Nasal Cannula 2.0 28 12/22/16 17:59 124/61 12/22/16 16:00 98.0 106 23 106/64 98 Nasal Cannula 2.0 12/22/16 15:42 108 12/22/16 15:35 100 20 100 Nasal Cannula 2.0 28 12/22/16 15:30 102 20 96 Nasal Cannula 2.0 28 Intake and Output 12/22/16 12/23/16 19:00 07:00 Intake Total 550 ml 600 ml Output Total 2020 ml 650 ml Balance -1470 ml -50 ml Intake Oral 350 ml 600 ml IV Total 200 ml Output Urine Total 2020 ml 650 ml Laboratory Tests 12/23/16 03:54: Magnesium Level 1.9 12/23/16 03:59: Sodium Level 140, Potassium Level 3.5, Chloride Level 99, Carbon Dioxide Level 21, Anion Gap 20H, Blood Urea Nitrogen 55H, Creatinine 2.4H, Estimat Glomerular Filtration Rate 27.2, Glucose Level 126H, Calcium Level 9.0, Total Bilirubin 0.4 , Aspartate Amino Transf (AST/SGOT) 24, Alanine Aminotransferase (ALT/SGPT) 40, Alkaline Phosphatase 241H, Pro-B-Type Natriuretic Peptide 65523M, Total Protein 6.9, Albumin 3.7, Globulin 3.2, Albumin/Globulin Ratio 1.1 Height (Feet): 5 Height (Inches): 9.00 Weight (Pounds): 159 General Appearance: WD/WN, no apparent distress EENT: PERRL/EOMI, normal ENT inspection Neck: non-tender Cardiovascular: normal rate, regular rhythm Respiratory/Chest: lungs clear, normal breath sounds Abdomen: non tender, soft Neurologic: home 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
--- NOTE | 2016-12-23 22:15 | Progress Note ---
DATE: 12/23/2016 CARDIOLOGY PROGRESS NOTE SUBJECTIVE: The patient is responding well to diuretics. Diuresis is adequate. He is less short of breath. He is saturating 99% to 100% on two liters nasal cannula. OBJECTIVE: VITAL SIGNS: Blood pressure 125/61, pulse 97, and respiratory rate 18. NECK: Supple. LUNGS: With diminished breath sounds. Few rales. HEART: Regular rhythm and rate. Normal S1 and S2 with a fourth heart sound. ABDOMEN: Soft. EXTREMITIES: No edema. IMPRESSION: 1. Acute diastolic and systolic congestive heart failure. 2. Ischemic cardiomyopathy. 3. Acute myocardial ischemia. 4. Chronic kidney disease, stage 4. 5. Creatinine at baseline. 6. Diabetes mellitus with complications. 7. Pleural effusion. PLAN: 1. Transition to oral diuretics. 2. Monitor cardiorenal parameters closely. 3. Anti-angina and anti-failure regimen has been up titrated. 4. [facility]. 5. Discharge medication regimen reviewed. Livan Mancini M.D. DR: JOAN JOB#: [id number] CC:
--- NOTE | 2016-12-24 19:50 | Cardiology Report ---
APPROVED REPORT EXAM: Two-dimensional and M-mode echocardiogram with Doppler and color Doppler. INDICATION CAD M-Mode DIMENSIONS IVSd0.7 (0.7-1.1cm)Left Atrium (MM)4.1 (1.6-4.0cm) LVDd6.2 (3.5-5.6cm)Aortic Root3.0 (2.0-3.7cm) PWd1.0 (0.7-1.1cm)Aortic Cusp Exc.1.5 (1.5-2.0cm) LVDs5.0 (2.5-4.0cm) PWs1.3 cm Technically difficult study due to poor acoustic windows. Mild left ventricular enlargement. Global left ventricular hypokinesia worse in the anteroseptal wall, ischemic cardiomyopathy cannot be excluded. Left ventricular ejection fraction estimated to be 40-45%. No evidence of left ventricular hypertrophy. Small posterior pericardial and posterior effusion. Right cardiac chamber sizes are within normal limits. Mild left atrial enlargement by 2D. Focal aortic valve sclerosis with adequate cusp excursion Thickened mitral valve leaflets with normal excursion. Mild mitral annulus and aortic root calcification. Pulmonic valve not well visualized. Normal tricuspid valve structure. IVC is normal in size with physiologic collapse. A color flow and spectral Doppler study was performed and revealed: Trace aortic regurgitation. Moderate mitral regurgitation. Left ventricular diastolic dysfunction grade II is evident. Elevated intracardiac filling pressure is seen. No tricuspid regurgitation. Tricuspid systolic velocities suggests peak right ventricular systolic pressure of 12 mmHg
--- NOTE | 2016-12-24 20:23 | Cardiology Report ---
APPROVED REPORT EKG Measurement Heart [id number] Sinus tachycardia Anteroseptal infarct, age undetermined Abnormal ECG
--- NOTE | 2016-12-26 09:05 | Diagnostic Imaging Report ---
APPROVED REPORT CPT Code: 56837 Present Symptoms Shortness of breath BILATERAL: Imaging reveals a patent deep venous system bilaterally. There is no evidence of thrombus within the femoral, popliteal or tibial segments. The greater saphenous veins are also within normal limits. Doppler indicates normal spontaneous flow within these segments.
== END 2016-12-23 15:45 | DRG 291 ==
LOC: ENRESERVTM → ENRESERVDT → EDBD 05:36 → EMR 05:45 → 2W 06:21 → EDBEDREQ 06:42
DX: I50.43 Acute on chronic combined systolic (congestive) and diastolic (congestive) heart failure (principal); J96.91 Respiratory failure, unspecified with hypoxia; N18.4 Chronic kidney disease, stage 4 (severe); J44.1 Chronic obstructive pulmonary disease with (acute) exacerbation; I12.9 Hypertensive chronic kidney disease with stage 1 through stage 4 chronic kidney disease, or unspecified chronic kidney disease; E11.22 Type 2 diabetes mellitus with diabetic chronic kidney disease; I25.2 Old myocardial infarction; I25.5 Ischemic cardiomyopathy; I25.10 Atherosclerotic heart disease of native coronary artery without angina pectoris; E78.5 Hyperlipidemia, unspecified; N40.0 Benign prostatic hyperplasia without lower urinary tract symptoms; R00.0 Tachycardia, unspecified; Z79.4 Long term (current) use of insulin
CPT/HCPCS: 36415; 36600; 71010; 76700; 80053; 81003; 82550; 82553; 82803; 82962; 83605; 83735; 83880; 84484; 84550; 85007; 85025; 87040; 87081; 93005; 93306; 93970; 94640; J1815; J7620

== ENCOUNTER 2017-02-17 23:21 | Inpatient (IN) | payer MEDICARE, OTHER ==
[~2017-02-17] VITALS: Ht 175.3 cm; Wt 72.1 kg
[~2017-02-17 23:21] MED LIST: ACETAMINOPHEN325 M1 ORAL; ACIDOPHILUS1 EAC6 PO; ASPIRIN EC81 MG ORAL; FERROUS SULFAT325 MG ORAL; FOLIC ACID1 MG ORAL; FUROSEMIDE40 MG ORAL; HUMULIN R100 UNIT/1 SUBQ; IRON325 M1 PO; LACTULOSE20 GM/301 ORAL; LANTUS SOL100 UNIT/1 SUBQ; LIPITOR20 MG ORAL; LYRICA75 M1 ORAL; MAALOX ADVANCE770 ML PO; NEPHRO-VITE RX1 EAC1 PO; NEPHROVITE1 TAB ORAL; NITRO-BID1 GM TOPIC; NORCO 5-325 TA1 EACH ORAL; PLAVIX75 MG ORAL; PROBIOTIC1 EAC2 PO; SODIUM BICARBO650 MG PO; TAMSULOSIN HCL0.4 MG ORAL; TOPROL XL25 MG ORAL; TRADJENTA5 MG PO; ULORIC80 MG ORAL; VITAMIN B 6 PO; VITAMIN B-12250 MCG PO; ZINC SULFATE220 M1 ORAL
[2017-02-17 23:25] VITALS: BP 189/100
--- NOTE | 2017-02-17 23:38 | Emergency Room Report ---
History of Present Illness General Chief Complaint: Dyspnea/Respdistress Source: Medical Record, EMS Present Illness HPI Patient presents from nursing facility with complaints of respiratory distress Patient himself is nonverbal was brought in on BiPAP Review of medical records initially reveals POLST form with DO NOT RESUSCITATE and Comfort Care Patient appears to have history of CHF, prostate cancer History of present illness remains significantly limited given the patient's critical presentation and nonverbal status unknown regarding fevers Unknown regarding vomiting or diarrhea Patient appears to have AV shunt left upper arm unclear last dialysis Allergies: Coded Allergies: No Known Allergies (Unverified , 12/21/16) Patient History Limited by: medical condition Past Medical History: see triage record Pertinent Family History: unable to obtain Reviewed Nursing Documentation: PMH: Agreed, PSxH: Agreed Nursing Documentation-PMH Past Medical History: No History, Except For Hx Cardiac Problems: Yes Hx Hypertension: Yes Hx Diabetes: Yes - bs 165 on arrival Hx Cancer: Yes - BPH Hx Gastrointestinal Problems: No Hx Dialysis: Yes - ESRD Hx Neurological Problems: No Review of Systems All Other Systems: limited - Other than the ones mentioned in the history of present illness all others are reviewed however they do stay limited due to the patient's mental status Physical Exam Vital Signs Date Time Temp Pulse Resp B/P Pulse Ox O2 Delivery O2 Flow Rate FiO2 02/17/17 23:22 118 22 206/115 91 Room Air Sp02 EP Interpretation: reviewed, abnormal - 91% which is low oxygenation, on BiPAP patient is at 95% which is normal General Appearance: well appearing, no apparent distress Head: normocephalic, atraumatic Eyes: bilateral eye EOMI, bilateral eye PERRL ENT: hearing grossly normal, normal pharynx, TMs + canals normal, uvula midline Neck: full range of motion, supple, no meningismus, no bony tend Respiratory: no accessory muscle use - Patient is tachypneic and appears to be in acute respiratory distress, accessory muscle use, crackles Cardiovascular #1: normal peripheral pulses, no edema, no gallop, no JVD, no murmur, tachycardia Gastrointestinal: normal bowel sounds, non tender, soft, no mass, no organomegaly, non-distended, no guarding, no hernia, no pulsatile mass, no rebound Genitourinary: no CVA tenderness Musculoskeletal: other - Patient has limited response, appears to move upper extremity towards physical stimuli Neurologic: responsive - To physical stimuli Psychiatric: mood/affect normal Skin: no rash, warm/dry, palpation normal, other - AV shunt left upper arm Lymphatic: normal inspection, no adenopathy Medical Decision Making Diagnostic Impression: Primary Impression: CHF (congestive heart failure) Additional Impressions: Respiratory distress DNR (do not resuscitate) ER Course Patient is a fairly complex patient with multiple differential to consideration including but not limited to cardiac cardiopulmonary and vascular emergencies Patient has significantly better on BiPAP Patient is titrated on the ABG Patient's urinary pathology is unclear given the shunt dialysis Patient will be provided diuretic as well Along with antibiotic for possible underlying pneumonia given the high white blood cell count Patient is not criteria for sepsis/severe sepsis/septic shock criteria given DO NOT RESUSCITATE status And admitted for further inpatient care Labs Test 02/17/17 23:00 02/17/17 23:33 White Blood Count 18.6 K/UL (4.8-10.8) Red Blood Count 4.95 M/UL (4.70-6.10) Hemoglobin 15.7 G/DL (14.2-18.0) Hematocrit 46.4 % (42.0-52.0) Mean Corpuscular Volume 94 FL (80-99) Mean Corpuscular Hemoglobin 31.7 PG (27.0-31.0) Mean Corpuscular Hemoglobin Concent 33.9 G/DL (32.0-36.0) Red Cell Distribution Width 13.7 % (11.6-14.8) Platelet Count 262 K/UL (150-450) Mean Platelet Volume 6.4 FL (6.5-10.1) Neutrophils (%) (Auto) % (45.0-75.0) Lymphocytes (%) (Auto) % (20.0-45.0) Monocytes (%) (Auto) % (1.0-10.0) Eosinophils (%) (Auto) % (0.0-3.0) Basophils (%) (Auto) % (0.0-2.0) Differential Total Cells Counted 100 Neutrophils % (Manual) 48 % (45-75) Lymphocytes % (Manual) 30 % (20-45) Monocytes % (Manual) 12 % (1-10) Eosinophils % (Manual) 5 % (0-3) Basophils % (Manual) 0 % (0-2) Band Neutrophils 5 % (0-8) Platelet Estimate Adequate Platelet Morphology Normal Red Blood Cell Morphology Normal Prothrombin Time 10.0 SEC (9.30-11.50) Prothromb Time International Ratio 1.0 (0.9-1.1) Activated Partial Thromboplast Time 29 SEC (23-33) Sodium Level 138 mEQ/L (135-145) Potassium Level 4.4 mEQ/L (3.4-4.9) Chloride Level 99 mEQ/L (98-107) Carbon Dioxide Level 23 mEQ/L (20-30) Anion Gap 16 (5-15) Blood Urea Nitrogen 60 mg/dL (7-23) Creatinine 2.5 mg/dL (0.7-1.2) Estimat Glomerular Filtration Rate 26.0 mL/min (>60) Glucose Level 223 mg/dL (74-106) Lactic Acid Level 1.40 mmol/L (0.66-2.22) Calcium Level 9.0 mg/dL (8.6-10.2) Total Bilirubin 0.4 mg/dL (0.0-1.2) Aspartate Amino Transf (AST/SGOT) 49 U/L (5-40) Alanine Aminotransferase (ALT/SGPT) 69 U/L (3-41) Alkaline Phosphatase 223 U/L (40-129) Total Creatine Kinase 77 U/L (38-174) Creatine Kinase MB 3.2 ng/mL (< 6.7) Creatine Kinase MB Relative Index 4.1 Troponin I < 0.30 ng/mL (<=0.30) Pro-B-Type Natriuretic Peptide 5183 pg/mL (0-125) Total Protein 8.1 g/dL (6.6-8.7) Albumin 4.4 g/dL (3.5-5.2) Globulin 3.7 g/dL Albumin/Globulin Ratio 1.1 (1.0-2.7) Lipase 99 U/L (< 60) Arterial Blood pH 7.230 (7.350-7.450) Arterial Blood Partial Pressure CO2 55.6 mmHg (35.0-45.0) Arterial Blood Partial Pressure O2 225.3 mmHg (75.0-100.0) Arterial Blood HCO3 22.9 mmol/L (22.0-26.0) Arterial Blood Oxygen Saturation 99.2 % (92.0-98.0) Arterial Blood Base Excess -5.4 Moy Test Negative Rhythm Strip Diag. Results EP Interpretation: yes Rate: 110 Rhythm: no PVC's, no ectopy, other - sinus tach Chest X-Ray Diagnostic Results Chest X-Ray Diagnostic Results : Chest X-Ray Ordered: Yes # of Views/Limited/Complete: 1 View Indication: Chest Pain EP Interpretation: Yes Interpretation: no pneumothorax, other - Cardiomegaly, bilateral effusion, cannot fully evaluate right lower lobe infiltrate Impression: Other - pulmonary congestion Interpreting ER Provider: drew issa DO Last Vital Signs Date Time Temp Pulse Resp B/P Pulse Ox O2 Delivery O2 Flow Rate FiO2 02/17/17 23:22 118 22 206/115 91 Room Air Status: improved Disposition: ADMITTED INPATIENT Condition: Serious DREW ISSA D.O. Feb 17, 2017 23:38
[2017-02-17 23:42] LABS: ABG BASE EXCESS -5.4; ABG PCO2 55.6 mmHg (35.0-45.0)
[2017-02-17 23:43] LABS: ABG ALLEN TEST NEGATIVE
[2017-02-18] VITALS (7 sets, daily range): BP systolic 107–140; BP diastolic 55–76
[2017-02-18] LABS: MEAN CORPUSCULAR HEMOGLOBIN 31.7 PG (27.0-31.0); MEAN CORPUSCULAR HGB CONC 33.9 G/DL (32.0-36.0); MEAN CORPUSCULAR VOLUME 94 FL (80-99); MEAN PLATELET VOLUME 6.4 FL (6.5-10.1); PLATELET COUNT 262 K/UL (150-450); RED BLOOD COUNT 4.95 M/UL (4.70-6.10); RED CELL DISTRIBUTION WIDTH 13.7 % (11.6-14.8); WHITE BLOOD COUNT 18.6 K/UL (4.8-10.8)
[2017-02-18] MEDS ORDERED: Miralax 17gm pkt ORAL PRN
[2017-02-18] MEDS ORDERED: DuoNeb 0.5-3(2.5)mg/3ml neb HHN PRN
[2017-02-18 00:07] LABS: ALBUMIN/GLOBULIN RATIO 1.1 (1.0-2.7); CREATININE 2.5 mg/dL (0.7-1.2); POTASSIUM 4.4 mEQ/L (3.4-4.9); TOTAL PROTEIN 8.1 g/dL (6.6-8.7); TROPONIN I < 0.30 ng/mL (<=0.30)
[2017-02-18 00:17] LABS: CKMB 3.2 ng/mL (< 6.7)
[2017-02-18] MEDS ORDERED: Piperacillin/Tazobactam 3.375 GM in NS 110 ML IVPB ONE (00:45)
[2017-02-18 00:46] LABS: BAND NEUTROPHILS % (MANUAL) 5 % (0-8); EOSINOPHILS % (MANUAL) 5 % (0-3); LYMPHOCYTES % (MANUAL) 30 % (20-45); NEUTROPHILS % (MANUAL) 48 % (45-75); TOTAL CELLS COUNTED 100
[2017-02-18 00:47] LABS: BASOPHILS % (MANUAL) 0 % (0-2); PLATELET ESTIMATE ADEQUATE; PLATELET MORPHOLOGY NORMAL
[2017-02-18] MEDS ORDERED: NEPHROVITE1 TAB ORAL (01:46)
[2017-02-18] MEDS ORDERED: LYRICA75 M1 ORAL (01:48)
[2017-02-18] MEDS ORDERED: LIPITOR20 MG ORAL (01:49)
[2017-02-18] MEDS ORDERED: ALUM-MAG HYDRO360 ML PO (01:52)
[2017-02-18] MEDS ORDERED: ISOSORBIDE MONO30 M1 PO (01:53)
[2017-02-18] MEDS ORDERED: Zosyn 3.375gm inj ONE (04:25)
[2017-02-18 05:42] LABS: BASOPHILS % (AUTO) 1.2 % (0.0-2.0); EOSINOPHILS % (AUTO) 0.9 % (0.0-3.0); LYMPHOCYTES % (AUTO) 15.5 % (20.0-45.0); MEAN CORPUSCULAR HEMOGLOBIN 31.7 PG (27.0-31.0); MEAN CORPUSCULAR HGB CONC 33.6 G/DL (32.0-36.0); MEAN CORPUSCULAR VOLUME 94 FL (80-99); MEAN PLATELET VOLUME 6.5 FL (6.5-10.1); MONOCYTES % (AUTO) 6.9 % (1.0-10.0); NEUTROPHILS % (AUTO) 75.5 % (45.0-75.0); PLATELET COUNT 205 K/UL (150-450); RED BLOOD COUNT 4.26 M/UL (4.70-6.10); RED CELL DISTRIBUTION WIDTH 13.3 % (11.6-14.8)
[2017-02-18 06:06] LABS: TROPONIN I < 0.30 ng/mL (<=0.30)
[2017-02-18 06:07] LABS: CALCIUM 8.9 mg/dL (8.6-10.2); CREATININE 2.4 mg/dL (0.7-1.2); GLOMERULAR FILTRATION RATE 27.2 mL/min (>60); PHOSPHORUS 5.7 mg/dL (2.5-4.8); POTASSIUM 4.5 mEQ/L (3.4-4.9)
[2017-02-18] MEDS: NovoLOG Insulin Flexpen SUBQ SCH ×4 (06:21→21:00)
[2017-02-18] MEDS: Lyrica 75mg cap ORAL SCH ×2 (09:18→18:15)
[2017-02-18] MEDS: Heparin 5000 units/ml inj SUBQ SCH ×2 (09:27→21:23)
[2017-02-18] MEDS ORDERED: NS 275ml ONE (10:14)
[2017-02-18] MEDS ORDERED: Tubing IV Secondary IV ONE (10:14)
--- NOTE | 2017-02-18 11:21 | Diagnostic Imaging Report ---
Indication: Dyspnea Comparison: 12/23/16 A single view chest radiograph was obtained. Findings: Evidence of bilateral pleural effusions and interstitial edema. Bones are slight osteopenic. Heart size is relatively normal. Impression: Suspected interstitial pulmonary edema.
--- NOTE | 2017-02-18 12:48 | History and Physical ---
History of Present Illness General Date patient seen: Feb 18, 2017 Reason for Hospitalization: Dyspnea/Respdistress Present Illness HPI 66 year old male with hx of CHF, renal insufficiency brought in from [facility] with CC of incresing SOB with sudden onset. No fever no chills, no phlegm. He was diagnosed to have pulmonary edema, was put on BIPAP and transferred to [facility]. Allergies: Coded Allergies: No Known Allergies (Unverified , 12/21/16) Medication History Scheduled Aspirin Ec* (Aspirin Ec*), 81 MG ORAL DAILY, (Reported) Aspirin Ec* (Aspirin Ec*), 81 MG ORAL DAILY, (Reported) Atorvastatin Calcium* (Lipitor*), 20 MG ORAL BEDTIME, (Reported) Atorvastatin Calcium* (Lipitor*), 20 MG ORAL BEDTIME, (Reported) Atorvastatin Calcium* (Lipitor*), 20 MG ORAL BEDTIME, (Reported) Clopidogrel Bisulfate* (Plavix*), 75 MG ORAL DAILY, (Reported) Cyanocobalamin (Vitamin B-12) (Vitamin B-12), 250 MCG PO DAILY, (Reported) Febuxostat (Uloric), 80 MG ORAL DAILY, (Reported) Febuxostat (Uloric), 80 MG ORAL DAILY, (Reported) Ferrous Sulfate* (Ferrous Sulfate*), 325 MG ORAL DAILY, (Reported) Folic Acid* (Folic Acid*), 1 MG ORAL DAILY, (Reported) Folic Acid* (Folic Acid*), 1 MG ORAL DAILY, (Reported) Furosemide* (Lasix*), 40 MG ORAL TWICE A DAY Insulin Glargine (Lantus), 10 SUBQ DAILY, (Reported) Insulin Glargine (Lantus), 0 SUBQ BEDTIME, (Reported) Lactobacillus Acidophilus (Probiotic), 1 EACH PO BID, (Reported) Linagliptin (Tradjenta), 5 MG PO DAILY, (Reported) Metoprolol Succinate* (Toprol Xl*), 25 MG ORAL DAILY, (Reported) Nitroglycerin (Nitro-Bid*), 1 INCH TOPIC TID@0600,1200,1800 Pregabalin* (Lyrica*), 75 MG ORAL BID, (Reported) Pregabalin* (Lyrica*), 75 MG ORAL THREE TIMES A DAY, (Reported) Sodium Bicarbonate* (Nahco3*), 650 MG PO BID, (Reported) Tamsulosin Hcl (Tamsulosin Hcl*), 0.4 MG ORAL 8 AM, (Reported) Vit B Cmplx 3/Fa/Vit C/Biotin (Nephro-Milady Rx Tablet), 1 EACH PO DAILY, ( Reported) Vitamin B Cmplx/Vit C/Folic AC (Nephro-Milady Tablet), 1 TAB ORAL DAILY, (Reported ) Vitamin B Cmplx/Vit C/Folic AC (Nephro-Milady Tablet), 1 TAB ORAL DAILY, (Reported ) [Vitamin B 6], 50 MG PO DAILY, (Reported) Scheduled PRN Acetaminophen* (Acetaminophen 325MG Tablet*), 325 MG ORAL Q4HR PRN for Fever/ Headache/Mild Pain, (Reported) Hydrocodone Bit/Acetaminophen 5-325* (Wildrose 5-325*), 1 TAB ORAL Q4H PRN for For Pain, (Reported) Miscellaneous Medications Ferrous Sulfate (Iron), 325 MG PO, (Reported) Insulin Regular, Human (Humulin R), 0 SUBQ, (Reported) Insulin Regular, Human (Humulin R), 0 SUBQ, (Reported) Isosorbide Mononitrate (Isosorbide Mononitrate Er), 30 MG PO, (Reported) Lactobacillus Acidophilus (Acidophilus), 1 EACH PO, (Reported) Lactulose (Lactulose*), 30 ML ORAL, (Reported) Linagliptin (Tradjenta), 5 MG PO, (Reported) Mag Hydrox/Al Hydrox/Simeth (Maalox Advanced Suspension), 770 ML PO, (Reported) Mag Hydrox/Al Hydrox/Simeth (Alum-Mag Hydroxide-Simeth Liq), 360 ML PO, ( Reported) Zinc Sulfate (Zinc Sulfate*), 220 MG ORAL, (Reported) Patient History Healthcare decision maker Resuscitation status Do Not Resuscitate Advanced Directive on File Past Medical/Surgical History Past Medical/Surgical History: (1) Renal insufficiency (2) CHF (congestive heart failure) Review of Systems All Other Systems: negative except mentioned in HPI Physical Exam General Appearance: cachetic Lines, tubes and drains: peripheral HEENT: normocephalic, atraumatic Neck: non-tender, normal alignment Respiratory/Chest: chest wall non-tender, lungs clear Cardiovascular/Chest: normal peripheral pulses, normal rate Abdomen: normal bowel sounds, soft Genitourinary/Rectal: normal genital exam Extremities: normal range of motion, non-tender Skin Exam: normal pigmentation 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 Last 24 Hour Vital Signs Date Time Temp Pulse Resp B/P Pulse Ox O2 Delivery O2 Flow Rate FiO2 02/18/17 11:06 81 20 98 02/18/17 09:00 97.2 92 20 128/71 99 Nasal Cannula 3.0 02/18/17 08:00 92 02/18/17 06:46 89 20 99 02/18/17 06:46 89 20 Nasal Cannula 2.0 02/18/17 04:00 15.0 50 02/18/17 03:45 97.9 85 16 107/64 100 Bi-pap 15.0 50 02/18/17 03:23 97.9 85 16 107/64 100 Bi-pap 15.0 50 02/18/17 03:12 93 18 100 Facial 70 02/18/17 01:54 97.9 92 18 107/59 100 15.0 70 92 02/18/17 01:38 94 18 100 Facial 70 02/18/17 00:57 97.2 96 18 120/68 100 Bi-pap 15.0 70 02/17/17 23:47 106 18 100 Facial 70 02/17/17 23:25 124 31 189/100 94 Bi-pap 15.0 70 02/17/17 23:25 124 31 Bi-pap 15.0 70 02/17/17 23:22 118 22 206/115 91 Room Air Intake and Output 02/17/17 02/18/17 19:00 07:00 Intake Total 0 ml Balance 0 ml Intake Oral 0 ml # Bowel Movements 4 Laboratory Tests Test 02/17/17 23:00 02/17/17 23:33 02/18/17 04:50 White Blood Count 18.6 K/UL (4.8-10.8) H 12.0 K/UL (4.8-10.8) H Red Blood Count 4.95 M/UL (4.70-6.10) 4.26 M/UL (4.70-6.10) L Hemoglobin 15.7 G/DL (14.2-18.0) 13.5 G/DL (14.2-18.0) L Hematocrit 46.4 % (42.0-52.0) 40.1 % (42.0-52.0) L Mean Corpuscular Volume 94 FL (80-99) 94 FL (80-99) Mean Corpuscular Hemoglobin 31.7 PG (27.0-31.0) H 31.7 PG (27.0-31.0) H Mean Corpuscular Hemoglobin Concent 33.9 G/DL (32.0-36.0) 33.6 G/DL (32.0-36.0) Red Cell Distribution Width 13.7 % (11.6-14.8) 13.3 % (11.6-14.8) Platelet Count 262 K/UL (150-450) 205 K/UL (150-450) Mean Platelet Volume 6.4 FL (6.5-10.1) L 6.5 FL (6.5-10.1) Neutrophils (%) (Auto) % (45.0-75.0) 75.5 % (45.0-75.0) H Lymphocytes (%) (Auto) % (20.0-45.0) 15.5 % (20.0-45.0) L Monocytes (%) (Auto) % (1.0-10.0) 6.9 % (1.0-10.0) Eosinophils (%) (Auto) % (0.0-3.0) 0.9 % (0.0-3.0) Basophils (%) (Auto) % (0.0-2.0) 1.2 % (0.0-2.0) Differential Total Cells Counted 100 Neutrophils % (Manual) 48 % (45-75) Lymphocytes % (Manual) 30 % (20-45) Monocytes % (Manual) 12 % (1-10) H Eosinophils % (Manual) 5 % (0-3) H Basophils % (Manual) 0 % (0-2) Band Neutrophils 5 % (0-8) Platelet Estimate Adequate Platelet Morphology Normal Red Blood Cell Morphology Normal Prothrombin Time 10.0 SEC (9.30-11.50) Prothromb Time International Ratio 1.0 (0.9-1.1) Activated Partial Thromboplast Time 29 SEC (23-33) Sodium Level 138 mEQ/L (135-145) 139 mEQ/L (135-145) Potassium Level 4.4 mEQ/L (3.4-4.9) 4.5 mEQ/L (3.4-4.9) Chloride Level 99 mEQ/L (98-107) 104 mEQ/L (98-107) Carbon Dioxide Level 23 mEQ/L (20-30) 20 mEQ/L (20-30) Anion Gap 16 (5-15) H 15 (5-15) Blood Urea Nitrogen 60 mg/dL (7-23) H 64 mg/dL (7-23) H Creatinine 2.5 mg/dL (0.7-1.2) H 2.4 mg/dL (0.7-1.2) H Estimat Glomerular Filtration Rate 26.0 mL/min (>60) 27.2 mL/min (>60) Glucose Level 223 mg/dL (74-106) H 182 mg/dL (74-106) H Lactic Acid Level 1.40 mmol/L (0.66-2.22) Calcium Level 9.0 mg/dL (8.6-10.2) 8.9 mg/dL (8.6-10.2) Total Bilirubin 0.4 mg/dL (0.0-1.2) Aspartate Amino Transf (AST/SGOT) 49 U/L (5-40) H Alanine Aminotransferase (ALT/SGPT) 69 U/L (3-41) H Alkaline Phosphatase 223 U/L (40-129) H Total Creatine Kinase 77 U/L (38-174) Creatine Kinase MB 3.2 ng/mL (< 6.7) Creatine Kinase MB Relative Index 4.1 Troponin I < 0.30 ng/mL (<=0.30) < 0.30 ng/mL (<=0.30) Pro-B-Type Natriuretic Peptide 5183 pg/mL (0-125) H Total Protein 8.1 g/dL (6.6-8.7) Albumin 4.4 g/dL (3.5-5.2) 3.6 g/dL (3.5-5.2) Globulin 3.7 g/dL Albumin/Globulin Ratio 1.1 (1.0-2.7) Lipase 99 U/L (< 60) H Arterial Blood pH 7.230 (7.350-7.450) Arterial Blood Partial Pressure CO2 55.6 mmHg (35.0-45.0) *H Arterial Blood Partial Pressure O2 225.3 mmHg (75.0-100.0) H Arterial Blood HCO3 22.9 mmol/L (22.0-26.0) Arterial Blood Oxygen Saturation 99.2 % (92.0-98.0) H Arterial Blood Base Excess -5.4 Moy Test Negative Phosphorus Level 5.7 mg/dL (2.5-4.8) H Height (Feet): 5 Height (Inches): 9.00 Weight (Pounds): 161 Medications Current Medications Medications (Trade) Dose Ordered Sig/Teodora Route PRN Reason Start Time Stop Time Status Last Admin Dose Admin Acetaminophen (Tylenol) 650 mg Q4H PRN ORAL Fever 02/18/17 00:00 03/20/17 00:00 02/18/17 09:19 Albuterol/ Ipratropium (DuoNeb 0.5-3(2.5)mg/3ml) 3 ml Q4H PRN HHN Shortness of Breath 02/18/17 00:00 02/23/17 00:00 Dextrose (Dextrose 50%) STAT PRN IV Hypoglycemia 02/18/17 00:00 03/20/17 00:00 Furosemide (Lasix) 40 mg Q8H IV 02/18/17 08:00 03/20/17 07:59 02/18/17 09:17 Heparin Sodium (Porcine) (Heparin 5000 units/ml) 5,000 units EVERY 12 HOURS SUBQ 02/18/17 09:00 03/20/17 08:59 02/18/17 09:27 Insulin Aspart (NovoLOG) BEFORE MEALS AND HS SUBQ 02/18/17 06:30 03/20/17 06:29 02/18/17 06:21 Ondansetron HCl (Zofran) 4 mg Q6H PRN IVP Nausea & Vomiting 02/18/17 00:00 03/20/17 00:00 Polyethylene Glycol (Miralax) 17 gm DAILYPRN PRN ORAL Constipation 02/18/17 00:00 03/20/17 00:00 Pregabalin (Lyrica) 75 mg BID ORAL 02/18/17 09:00 03/20/17 08:59 02/18/17 09:18 Temazepam (Restoril) 15 mg HSPRN PRN ORAL Insomnia 02/18/17 00:00 02/25/17 00:00 Assessment/Plan Problem List: (1) Acute and chronic respiratory failure ICD Codes: J96.20 - Acute and chronic respiratory failure, unspecified whether with hypoxia or hypercapnia SNOMED: 73977727 (2) Acute on chronic systolic (congestive) heart failure ICD Codes: I50.23 - Acute on chronic systolic (congestive) heart failure SNOMED: 15665040, 195563042 (3) Severe protein-calorie malnutrition ICD Codes: E43 - Unspecified severe protein-calorie malnutrition SNOMED: 216679425 (4) Renal insufficiency ICD Codes: N28.9 - Disorder of kidney and ureter, unspecified SNOMED: 159513075 Assessment/Plan diuretics respiratory treatment check echo check electrolytes. BIPAP PRN ROBERT NGUYEN Feb 18, 2017 12:48
--- NOTE | 2017-02-18 13:47 | Consultation ---
Consult Note Consult Note Brief nephrology consult: Impression: Acute exacerbation of systolic CHF 2) Underlying CKD stage IV at baseline 3) DM II insulin requiring Plan: Agree with diuresis Will check Urine microalbumin to creat ratio #[id number] WENDI PONCE Feb 18, 2017 13:47
--- NOTE | 2017-02-18 14:20 | Cardiology Report ---
APPROVED REPORT EXAM: Two-dimensional and M-mode echocardiogram with Doppler and color Doppler. INDICATION LV function M-Mode DIMENSIONS IVSd1.4 (0.7-1.1cm)Left Atrium (MM)4.3 (1.6-4.0cm) LVDd4.0 (3.5-5.6cm)Aortic Root3.6 (2.0-3.7cm) PWd1.9 (0.7-1.1cm)Aortic Cusp Exc.1.6 (1.5-2.0cm) LVDs3.1 (2.5-4.0cm) PWs2.6 cm Technically difficult study due to poor acoustical windows. Mild left ventricular enlargement. Anteroseptal wall hypokinesia, with anterior wall aneurysmal formation. Left ventricular ejection fraction is estimated to be 35%. Ischemic cardiomyopathy cannot be excluded. Echogenic material noted at apex - can not exclude for LV apical thrombus. Increased E point-interventricular septal separation c/w left ventricular dysfunction. Study quality precludes accurate assessment of regional wall motion. Mild left ventricular hypertrophy. Anterior Echo-free space, may be due to pericardial fat or effusion. Mild left atrial enlargement. Right cardiac chamber sizes are within normal limits. Focal aortic valve sclerosis with adequate cusp excursion. Thickened mitral valve leaflets with normal excursion. Mitral annulus and aortic root calcification. Pulmonic valve not well visualized. Normal tricuspid valve structure. IVC dilated at 2.2 cm without physiologic collapse. A color flow and spectral Doppler study was performed and revealed: Trace aortic regurgitation. Moderate mitral regurgitation. Mitral inflow velocities indicates possible pseudo normalization pattern implying moderately elevated left atrial pressure (Grade II). Trace tricuspid regurgitation. Tricuspid systolic velocities suggests peak right ventricular systolic pressure of 17 mmHg.
--- NOTE | 2017-02-18 14:29 | Cardiology Report ---
APPROVED REPORT EKG Measurement Heart [id number] Sinus tachycardia Otherwise normal ECG
--- NOTE | 2017-02-18 14:32 | Diagnostic Imaging Report ---
APPROVED REPORT CPT Code: 61545 Present Symptoms Comments: Pulmonary edema/ BIPAP BILATERAL: Imaging reveals a patent deep venous system bilaterally. There is no evidence of thrombus within the femoral, popliteal or tibial segments. The greater saphenous veins are also within normal limits. Doppler indicates normal spontaneous flow within these segments.
[2017-02-18 18:48] LABS: APPEARANCE,URINE CLEAR; KETONES,URINE NEGATIVE (NEGATIVE); LEUKOCYTE ESTERASE ,URINE NEGATIVE (NEGATIVE); NITRITE,URINE NEGATIVE (NEGATIVE); PH,URINE 5 (4.5-8.0); PROTEIN,URINE 2+ (NEGATIVE); UROBILINOGEN,URINE NORMAL MG/DL (0.0-1.0)
[2017-02-18 19:07] LABS: AMORPHOUS SEDIMENT,UR FEW /LPF; BACTERIA,URINE FEW /HPF; RBC,URINE 0-2 /HPF (0 - 0); WBC,URINE 0-2 /HPF (0 - 0)
--- NOTE | 2017-02-18 23:15 | Consultation ---
DATE OF CONSULTATION: 02/18/2017 NEPHROLOGY CONSULT REASON FOR CONSULT: The patient with underlying kidney dysfunction and has had increasing shortness of breath. HISTORY OF PRESENT ILLNESS: This is a very pleasant 66-year-old Kisw[place]ili gentleman that I have been following as outpatient, has a history of longstanding diabetes mellitus, also underlying chronic kidney disease with a baseline serum creatinine in the range of 2.3 to 2.4 mg/dL with a GFR in the range of 21 to 25 mL/minute, also has systolic cardiomyopathy with ejection fraction in the range of 27%. He is a resident of a assisted, has been in his usual state of health until apparently yesterday on 02/17/2017 when he had a bowl of soup, which was very salty and after which, he started to have some swelling in the legs and also has had some increasing shortness of breath, for which he was brought to the emergency room of [facility] where he was evaluated and was found to be in pulmonary edema. Lasix was given and he was admitted for further evaluation. He is getting diuresed with the help of Lasix and I have been asked to see him for his underlying kidney dysfunction and CHF that he has presented with. PAST MEDICAL HISTORY: Significant for chronic kidney disease with a baseline serum creatinine in the range of 2.3 to 2.4 mg/dL with a GFR of about 25 mL/minute indicating a CKD stage 4, type 2 diabetes mellitus insulin requiring, hypertension, anemia, underlying coronary artery disease, status post non-ST elevation myocardial infarction in November of 2016, he has had cardiogenic shock and underwent angioplasty and stent was placed in the mid LAD diagonal bifurcation. He also has had degenerative joint disease of the lumbar spine, also has been an alcohol abuser in the past, some severe neuropathy of both lower extremities, he has been disabled and not able to walk very much. He also has had history of gout. PAST SURGICAL HISTORY: Status post lumbar spine decompression surgery, status post right carotid endarterectomy, and status post left arm AV fistula creation for hemodialysis access. CURRENT MEDICATIONS: Include Nephro-Milady one tablet by mouth daily, cyanocobalamin 500 mcg by mouth daily, insulin Lantus 10 units subcutaneously every morning, metoprolol-XL 25 mg p.o. daily, pantoprazole 40 mg p.o. daily, zinc sulfate 220 mg by mouth daily, Flomax 0.4 mg by mouth daily, aspirin 81 mg p.o. daily, atorvastatin 20 mg p.o. daily, folic acid one tablet by mouth daily, Plavix 75 mg by mouth daily, Lyrica 75 mg by mouth daily, sodium bicarbonate 650 mg p.o. b.i.d., Uloric 80 mg p.o. daily, Tradjenta 5 mg p.o. daily, and furosemide 40 mg p.o. daily. SOCIAL HISTORY: He was an alcohol abuser in the past, he quit and he is a nonsmoker at this point. No illicit drugs. He is living in a assisted at this point. FAMILY HISTORY: Noncontributory. REVIEW OF SYSTEMS: General: He has not had any significant weight change. Denies any chills or fever. Cardiovascular: Denies any chest pain. He has had some dyspnea with exertion. He has had some degree of orthopnea. Respiratory: Denies any cough, purulent sputum production, hemoptysis, or wheezing. Skin: Denies any rash or photosensitivity. Musculoskeletal: Denies any arthralgia or myalgia. Urinary: Denies any urinary foaminess, hematuria, or dysuria. Neurological: He has some paresthesia and loss of sensation of the position of his legs and difficulty with walking. Gastrointestinal: Denies any nausea, vomiting, diarrhea, melena, or hematochezia. Endocrine: Blood sugar is in the range of 180 to 200 now. Hematological: Denies any easy bruising or easy bleeding. The remainder of the review of system has been essentially negative. PHYSICAL EXAMINATION: GENERAL: He does not seem to be in much acute distress. VITAL SIGNS: Blood pressure is 117/55, pulse of 93, respirations 20, and temperature 97.5 degrees. HEENT: Head is atraumatic. Eyes, pupils reactive to light. No evidence of papilledema. Ears, canals are clear. Tympanic membranes are intact. Nose, nares are patent without any nasal discharge. Throat without any inflammation or exudate. NECK: Supple. Jugular venous distention is somewhat increased. No cervical adenopathy. No thyromegaly. HEART: Regular rhythm. A 2/6 holosystolic murmur. LUNGS: There are few crackles in both bases. ABDOMEN: Supple. Bowel sounds positive. No hepatosplenomegaly. EXTREMITIES: Lower extremity shows 1+ pedal edema. NEUROLOGICAL: Cranial nerves are intact. There is decrease in deep tendon reflexes in both lower extremities. LABORATORY AND DIAGNOSTIC DATA: Laboratory data is showing a sodium 139, potassium 4.5, chloride 104, carbon dioxide 20, BUN is 64, creatinine is 2.4, glucose 182, and calcium 8.9. Troponin less than 0.30. ProBNP of 5183. WBCs 12, hemoglobin is 13.5, hematocrit 40.1, and platelets are 205,000. A 12-lead EKG showing sinus tachycardia with evidence of LVH, no signs of acute ischemic changes nevertheless. Chest x-ray showing some apical redistribution of the vessels with a right-sided pleural effusion and some degree of pulmonary edema. IMPRESSION: 1. Acute exacerbation of systolic congestive heart failure. He has an ejection fraction of 27%. 2. Underlying chronic kidney disease, stage 4, this seems to be at baseline. 3. Diabetes mellitus type 2, insulin requiring. 4. Underlying coronary artery disease, status post recent percutaneous coronary intervention of the LAD in November of 2016. PLAN: I agree with the diuresis at this point. I would check a urine microalbumin to creatinine ratio. I will follow the evolution of his kidney function. Once his level more stable, probably would benefit from his REJI inhibitor or medications such as . Timoteo Clement M.D. DR: LEEANNE JOB#: [id number] CC:
[2017-02-19] VITALS: BP 95/70
[2017-02-19 04:00] VITALS: BP 124/73
[2017-02-19] MEDS ORDERED: DuoNeb 0.5-3(2.5)mg/3ml neb HHN PRN (04:00)
[2017-02-19] MEDS: NovoLOG Insulin Flexpen SUBQ SCH ×4 (06:12→21:00)
[2017-02-19 07:42] LABS: BASOPHILS % (AUTO) 1.3 % (0.0-2.0); EOSINOPHILS % (AUTO) 5.2 % (0.0-3.0); LYMPHOCYTES % (AUTO) 17.3 % (20.0-45.0); MEAN CORPUSCULAR HEMOGLOBIN 31.2 PG (27.0-31.0); MEAN CORPUSCULAR HGB CONC 33.5 G/DL (32.0-36.0); MEAN CORPUSCULAR VOLUME 93 FL (80-99); MEAN PLATELET VOLUME 6.3 FL (6.5-10.1); MONOCYTES % (AUTO) 7.7 % (1.0-10.0); NEUTROPHILS % (AUTO) 68.5 % (45.0-75.0); PLATELET COUNT 231 K/UL (150-450); RED BLOOD COUNT 4.55 M/UL (4.70-6.10); RED CELL DISTRIBUTION WIDTH 13.7 % (11.6-14.8); WHITE BLOOD COUNT 10.6 K/UL (4.8-10.8)
[2017-02-19 07:53] LABS: CALCIUM 9.3 mg/dL (8.6-10.2); CREATININE 2.1 mg/dL (0.7-1.2); GLOMERULAR FILTRATION RATE 31.8 mL/min (>60); POTASSIUM 4.5 mEQ/L (3.4-4.9); TOTAL PROTEIN 7.5 g/dL (6.6-8.7)
[2017-02-19 08:02] VITALS: BP 138/77
[2017-02-19] MEDS: Lyrica 75mg cap ORAL SCH ×2 (08:52→17:06)
[2017-02-19] MEDS: Heparin 5000 units/ml inj SUBQ SCH ×2 (08:53→20:36)
[2017-02-19 11:47] VITALS: BP 122/72
--- NOTE | 2017-02-19 12:33 | Pulmonology Progress Note ---
Assessment/Plan Problems: (1) Acute and chronic respiratory failure (2) Acute on chronic systolic (congestive) heart failure (3) Severe protein-calorie malnutrition (4) Renal insufficiency Assessment/Plan echo noted, possible LV thrombus. Cardio consult, Dr. Hartley called titrate diuretics check eclectrolytes cxr, BNP in am Subjective ROS Limited/Unobtainable: No Interval Events: less short of breath Constitutional: Reports: no symptoms HEENT: Repors: no symptoms Allergies: Coded Allergies: No Known Allergies (Unverified , 12/21/16) Objective Last 24 Hour Vital Signs Date Time Temp Pulse Resp B/P Pulse Ox O2 Delivery O2 Flow Rate FiO2 02/19/17 11:47 98.1 96 18 122/72 96 Nasal Cannula 3.0 02/19/17 08:02 97.0 101 18 138/77 97 Nasal Cannula 3.0 02/19/17 07:53 106 16 Room Air 21 02/19/17 04:00 96 02/19/17 04:00 97.6 100 18 124/73 96 Nasal Cannula 2.0 02/19/17 00:00 98.1 104 20 95/70 98 Nasal Cannula 3.0 02/19/17 00:00 101 02/18/17 23:14 86 16 Nasal Cannula 2.0 28 02/18/17 20:00 98.2 106 20 133/66 96 Nasal Cannula 3.0 02/18/17 19:22 107 02/18/17 17:33 105 22 96 02/18/17 16:26 96 02/18/17 16:00 98.1 95 20 140/76 98 Nasal Cannula 3.0 Intake and Output 02/18/17 02/19/17 19:00 07:00 Intake Total 660 ml Output Total 1700 ml 550 ml Balance -1040 ml -550 ml Intake Oral 660 ml Output Urine Total 1700 ml 550 ml # Bowel Movements 4 General Appearance: cachetic HEENT: normocephalic, atraumatic Respiratory/Chest: chest wall non-tender, lungs clear Cardiovascular: normal peripheral pulses, regular rhythm Abdomen: normal bowel sounds, soft, non tender Genitourinary: normal external genitalia Extremities: no clubbing 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 normal, no motor/sensory deficits Lymphatic: no neck adenopathy Microbiology Date/Time Source Procedure Growth Status 02/17/17 23:50 Blood Blood Culture - Preliminary NO GROWTH AFTER 24 HOURS Resulted 02/17/17 23:45 Blood Blood Culture - Preliminary NO GROWTH AFTER 24 HOURS Resulted Laboratory Tests 02/18/17 18:00: Urine Color Pale yellow, Urine Appearance Clear, Urine pH 5, Urine Specific [place] 1.010, Urine Protein 2+H, Urine Glucose (UA) 1+H, Urine Ketones Negative , Urine Occult Blood Negative, Urine Nitrite Negative, Urine Bilirubin Negative , Urine Urobilinogen Normal, Urine Leukocyte Esterase Negative, Urine RBC 0-2H, Urine WBC 0-2, Urine Squamous Epithelial Cells None, Urine Amorphous Sediment FewH, Urine Bacteria Few, Urine Random Creatinine [Pending], Urine Random Microalbumin [Pending], Urine Creatinine 35.8, Urine Microalbumin/Creatinine Ratio [Pending] 02/19/17 06:45: White Blood Count 10.6, Red Blood Count 4.55L, Hemoglobin 14.2, Hematocrit 42.4 , Mean Corpuscular Volume 93, Mean Corpuscular Hemoglobin 31.2H, Mean Corpuscular Hemoglobin Concent 33.5, Red Cell Distribution Width 13.7, Platelet Count 231, Mean Platelet Volume 6.3L, Neutrophils (%) (Auto) 68.5, Lymphocytes ( %) (Auto) 17.3L, Monocytes (%) (Auto) 7.7, Eosinophils (%) (Auto) 5.2H, Basophils (%) (Auto) 1.3, Sodium Level 143, Potassium Level 4.5, Chloride Level 106, Carbon Dioxide Level 23, Anion Gap 14, Blood Urea Nitrogen 64H, Creatinine 2.1H, Estimat Glomerular Filtration Rate 31.8, Glucose Level 113H, Calcium Level 9.3, Total Bilirubin 0.7, Aspartate Amino Transf (AST/SGOT) 26, Alanine Aminotransferase (ALT/SGPT) 39, Alkaline Phosphatase 181H, Total Protein 7.5, Albumin 3.8, Globulin 3.7, Albumin/Globulin Ratio 1.0 Current Medications Medications (Trade) Dose Ordered Sig/Teodora Route PRN Reason Start Time Stop Time Status Last Admin Dose Admin Acetaminophen (Tylenol) 650 mg Q4H PRN ORAL Fever 02/19/17 04:00 03/21/17 03:59 02/19/17 08:53 Albuterol/ Ipratropium (DuoNeb 0.5-3(2.5)mg/3ml) 3 ml Q4H PRN HHN Shortness of Breath 02/19/17 04:00 02/24/17 03:59 Dextrose (Dextrose 50%) STAT PRN IV Hypoglycemia 02/20/17 00:00 03/22/17 00:00 Furosemide (Lasix) 40 mg Q8H IV 02/19/17 08:00 03/21/17 07:59 02/19/17 08:52 Heparin Sodium (Porcine) (Heparin 5000 units/ml) 5,000 units EVERY 12 HOURS SUBQ 02/19/17 09:00 03/21/17 08:59 02/19/17 08:53 Insulin Aspart (NovoLOG) BEFORE MEALS AND HS SUBQ 02/19/17 06:30 03/21/17 06:29 Ondansetron HCl (Zofran) 4 mg Q6H PRN IVP Nausea & Vomiting 02/19/17 06:00 03/21/17 05:59 Polyethylene Glycol (Miralax) 17 gm DAILYPRN PRN ORAL Constipation 02/20/17 00:00 03/22/17 00:00 Pregabalin (Lyrica) 75 mg BID ORAL 02/19/17 09:00 03/21/17 08:59 02/19/17 08:52 Temazepam (Restoril) 15 mg HSPRN PRN ORAL Insomnia 02/20/17 00:00 02/27/17 00:00 ROBERT NGUYEN Feb 19, 2017 12:33
--- NOTE | 2017-02-19 14:10 | Nephrology Progress Note ---
Objective Objective Last 24 Hour Vital Signs Date Time Temp Pulse Resp B/P Pulse Ox O2 Delivery O2 Flow Rate FiO2 02/19/17 11:47 98.1 96 18 122/72 96 Nasal Cannula 3.0 02/19/17 08:02 97.0 101 18 138/77 97 Nasal Cannula 3.0 02/19/17 07:53 106 16 Room Air 21 02/19/17 04:00 96 02/19/17 04:00 97.6 100 18 124/73 96 Nasal Cannula 2.0 02/19/17 00:00 98.1 104 20 95/70 98 Nasal Cannula 3.0 02/19/17 00:00 101 02/18/17 23:14 86 16 Nasal Cannula 2.0 28 02/18/17 20:00 98.2 106 20 133/66 96 Nasal Cannula 3.0 02/18/17 19:22 107 02/18/17 17:33 105 22 96 02/18/17 16:26 96 02/18/17 16:00 98.1 95 20 140/76 98 Nasal Cannula 3.0 Intake and Output 02/18/17 02/19/17 19:00 07:00 Intake Total 660 ml Output Total 1700 ml 550 ml Balance -1040 ml -550 ml Intake Oral 660 ml Output Urine Total 1700 ml 550 ml # Bowel Movements 4 Laboratory Tests 02/18/17 18:00: Urine Color Pale yellow, Urine Appearance Clear, Urine pH 5, Urine Specific [place] 1.010, Urine Protein 2+H, Urine Glucose (UA) 1+H, Urine Ketones Negative , Urine Occult Blood Negative, Urine Nitrite Negative, Urine Bilirubin Negative , Urine Urobilinogen Normal, Urine Leukocyte Esterase Negative, Urine RBC 0-2H, Urine WBC 0-2, Urine Squamous Epithelial Cells None, Urine Amorphous Sediment FewH, Urine Bacteria Few, Urine Random Creatinine [Pending], Urine Random Microalbumin [Pending], Urine Creatinine 35.8, Urine Microalbumin/Creatinine Ratio [Pending] 02/19/17 06:45: White Blood Count 10.6, Red Blood Count 4.55L, Hemoglobin 14.2, Hematocrit 42.4 , Mean Corpuscular Volume 93, Mean Corpuscular Hemoglobin 31.2H, Mean Corpuscular Hemoglobin Concent 33.5, Red Cell Distribution Width 13.7, Platelet Count 231, Mean Platelet Volume 6.3L, Neutrophils (%) (Auto) 68.5, Lymphocytes ( %) (Auto) 17.3L, Monocytes (%) (Auto) 7.7, Eosinophils (%) (Auto) 5.2H, Basophils (%) (Auto) 1.3, Sodium Level 143, Potassium Level 4.5, Chloride Level 106, Carbon Dioxide Level 23, Anion Gap 14, Blood Urea Nitrogen 64H, Creatinine 2.1H, Estimat Glomerular Filtration Rate 31.8, Glucose Level 113H, Calcium Level 9.3, Total Bilirubin 0.7, Aspartate Amino Transf (AST/SGOT) 26, Alanine Aminotransferase (ALT/SGPT) 39, Alkaline Phosphatase 181H, Total Protein 7.5, Albumin 3.8, Globulin 3.7, Albumin/Globulin Ratio 1.0 Height (Feet): 5 Height (Inches): 9.00 Weight (Pounds): 161 WENDI PONCE Feb 19, 2017 14:10
--- NOTE | 2017-02-19 14:28 | Nephrology Progress Note ---
Assessment/Plan Assessment 1) CKD IV 2) Acute exacerbation of systolic CHF 3) DM 4) CAD Plan: Agree with diuresis will need to be on ACEI or entresto cautiously Also beta blockade Subjective Subjective He is feeling much better, TTE showed EF of 35%, nop more sob, creat is 2.1 Objective Objective Last 24 Hour Vital Signs Date Time Temp Pulse Resp B/P Pulse Ox O2 Delivery O2 Flow Rate FiO2 02/19/17 11:47 98.1 96 18 122/72 96 Nasal Cannula 3.0 02/19/17 08:02 97.0 101 18 138/77 97 Nasal Cannula 3.0 02/19/17 07:53 106 16 Room Air 21 02/19/17 04:00 96 02/19/17 04:00 97.6 100 18 124/73 96 Nasal Cannula 2.0 02/19/17 00:00 98.1 104 20 95/70 98 Nasal Cannula 3.0 02/19/17 00:00 101 02/18/17 23:14 86 16 Nasal Cannula 2.0 28 02/18/17 20:00 98.2 106 20 133/66 96 Nasal Cannula 3.0 02/18/17 19:22 107 02/18/17 17:33 105 22 96 02/18/17 16:26 96 02/18/17 16:00 98.1 95 20 140/76 98 Nasal Cannula 3.0 Intake and Output 02/18/17 02/19/17 19:00 07:00 Intake Total 660 ml Output Total 1700 ml 550 ml Balance -1040 ml -550 ml Intake Oral 660 ml Output Urine Total 1700 ml 550 ml # Bowel Movements 4 Laboratory Tests 02/18/17 18:00: Urine Color Pale yellow, Urine Appearance Clear, Urine pH 5, Urine Specific [place] 1.010, Urine Protein 2+H, Urine Glucose (UA) 1+H, Urine Ketones Negative , Urine Occult Blood Negative, Urine Nitrite Negative, Urine Bilirubin Negative , Urine Urobilinogen Normal, Urine Leukocyte Esterase Negative, Urine RBC 0-2H, Urine WBC 0-2, Urine Squamous Epithelial Cells None, Urine Amorphous Sediment FewH, Urine Bacteria Few, Urine Random Creatinine [Pending], Urine Random Microalbumin [Pending], Urine Creatinine 35.8, Urine Microalbumin/Creatinine Ratio [Pending] 02/19/17 06:45: White Blood Count 10.6, Red Blood Count 4.55L, Hemoglobin 14.2, Hematocrit 42.4 , Mean Corpuscular Volume 93, Mean Corpuscular Hemoglobin 31.2H, Mean Corpuscular Hemoglobin Concent 33.5, Red Cell Distribution Width 13.7, Platelet Count 231, Mean Platelet Volume 6.3L, Neutrophils (%) (Auto) 68.5, Lymphocytes ( %) (Auto) 17.3L, Monocytes (%) (Auto) 7.7, Eosinophils (%) (Auto) 5.2H, Basophils (%) (Auto) 1.3, Sodium Level 143, Potassium Level 4.5, Chloride Level 106, Carbon Dioxide Level 23, Anion Gap 14, Blood Urea Nitrogen 64H, Creatinine 2.1H, Estimat Glomerular Filtration Rate 31.8, Glucose Level 113H, Calcium Level 9.3, Total Bilirubin 0.7, Aspartate Amino Transf (AST/SGOT) 26, Alanine Aminotransferase (ALT/SGPT) 39, Alkaline Phosphatase 181H, Total Protein 7.5, Albumin 3.8, Globulin 3.7, Albumin/Globulin Ratio 1.0 Height (Feet): 5 Height (Inches): 9.00 Weight (Pounds): 161 General Appearance: WD/WN, no apparent distress EENT: PERRL/EOMI Neck: non-tender, normal alignment, supple Cardiovascular: normal rate, regular rhythm Respiratory/Chest: lungs clear Abdomen: normal bowel sounds, soft 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
[2017-02-19 15:44] VITALS: BP 137/71
[2017-02-19 20:00] VITALS: BP 134/72
[2017-02-19] MEDS ORDERED: Atorvastatin 20mg tab ORAL SCH (22:00)
[2017-02-19] MEDS ORDERED: Metoprolol Succinate XL 50mg tab ORAL ONE (22:00)
[2017-02-19] MEDS: Imdur 30mg tab ORAL SCH (22:13)
[2017-02-20] VITALS: BP 131/75
[2017-02-20] MEDS ORDERED: Miralax 17gm pkt ORAL PRN
[2017-02-20 04:00] VITALS: BP 130/75
[2017-02-20 04:21] LABS: CREATININE RANDOM URINE 32.5 mg/dL (Not Estab.); MICROALBUMIN/CREATININE RATIO 351.1 mg/g creat (0.0-30.0)
[2017-02-20] MEDS: NovoLOG Insulin Flexpen SUBQ SCH ×2 (06:30→11:30)
[2017-02-20 07:51] VITALS: BP 122/68
[2017-02-20] MEDS ORDERED: Aspirin Baby 81mg ORAL SCH (09:00)
[2017-02-20] MEDS ORDERED: Metoprolol Succinate XL 50mg tab ORAL SCH (09:00)
[2017-02-20] MEDS ORDERED: Enoxaparin Sodium 300mg/3ml vial SUBQ SCH (09:00)
[2017-02-20] MEDS: Imdur 30mg tab ORAL SCH (09:09)
[2017-02-20] MEDS: Lyrica 75mg cap ORAL SCH (09:10)
[2017-02-20 11:29] VITALS: BP 132/70
[2017-02-20] MEDS ORDERED: FUROSEMIDE80 M1 ORAL (12:17)
[2017-02-20] MEDS ORDERED: LOVENOX300 MG/3 M SUBQ (12:17)
--- NOTE | 2017-02-20 12:18 | Pulmonology Progress Note ---
Assessment/Plan Problems: (1) Acute and chronic respiratory failure (2) Acute on chronic systolic (congestive) heart failure (3) Severe protein-calorie malnutrition (4) Renal insufficiency Assessment/Plan echo noted, possible LV thrombus. Cardio consult, titrate diuretics check eclectrolytes was started on Lovenox for LV thrombus pt adamant about leaving hospital Subjective ROS Limited/Unobtainable: No Interval Events: no new complains Allergies: Coded Allergies: No Known Allergies (Unverified , 12/21/16) Objective Last 24 Hour Vital Signs Date Time Temp Pulse Resp B/P (MAP) Pulse Ox O2 Delivery O2 Flow Rate FiO2 02/20/17 11:29 98.1 90 18 132/70 96 Room Air 02/20/17 09:09 122/68 02/20/17 09:09 92 122/68 02/20/17 08:00 91 02/20/17 07:51 97.2 92 18 122/68 97 Room Air 02/20/17 07:50 92 16 Room Air 21 02/20/17 04:00 97.3 96 20 130/75 95 Room Air 02/20/17 04:00 90 02/20/17 00:00 95 02/20/17 00:00 97.3 95 20 131/75 93 Room Air 02/19/17 22:14 100 134/72 02/19/17 22:13 134/72 02/19/17 20:00 98.2 100 21 134/72 93 Room Air 02/19/17 20:00 97 02/19/17 19:30 102 16 Room Air 21 02/19/17 16:00 100 02/19/17 15:44 97.9 100 18 137/71 96 Nasal Cannula 3.0 Intake and Output 02/20/17 02/21/17 19:00 07:00 Intake Total 120 ml Output Total 300 ml Balance -180 ml Intake Oral 120 ml Output Urine Total 300 ml General Appearance: WD/WN HEENT: normocephalic, atraumatic Respiratory/Chest: chest wall non-tender, lungs clear, normal breath sounds Cardiovascular: normal peripheral pulses, normal rate Abdomen: normal bowel sounds, soft, non tender Genitourinary: normal external genitalia Extremities: no cyanosis Skin: no lesions 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 Complete 02/18/17 02:15 Rectum VRE Culture - Final Enterococcus Faecium - Vre Complete Current Medications Medications (Trade) Dose Ordered Sig/Teodora Route PRN Reason Start Time Stop Time Status Last Admin Dose Admin Acetaminophen (Tylenol) 650 mg Q4H PRN ORAL Fever 02/19/17 04:00 03/21/17 03:59 02/20/17 05:05 Albuterol/ Ipratropium (DuoNeb 0.5-3(2.5)mg/3ml) 3 ml Q4H PRN HHN Shortness of Breath 02/19/17 04:00 02/24/17 03:59 Aspirin (ASA) 81 mg DAILY ORAL 02/20/17 09:00 03/22/17 08:59 02/20/17 09:10 Atorvastatin Calcium (Lipitor) 20 mg BEDTIME ORAL 02/19/17 22:00 03/21/17 21:59 02/19/17 22:14 Clopidogrel Bisulfate (Plavix) 75 mg DAILY ORAL 02/20/17 09:00 03/22/17 08:59 02/20/17 09:09 Dextrose (Dextrose 50%) STAT PRN IV Hypoglycemia 02/20/17 00:00 03/22/17 00:00 Enoxaparin Sodium (Lovenox) 70 mg Q12HR SUBQ 02/20/17 09:00 03/22/17 08:59 02/20/17 09:11 Furosemide (Lasix) 40 mg Q12H IV 02/20/17 04:00 03/22/17 03:59 02/20/17 04:38 Insulin Aspart (NovoLOG) BEFORE MEALS AND HS SUBQ 02/19/17 06:30 03/21/17 06:29 Isosorbide Mononitrate (Imdur) 30 mg DAILY ORAL 02/19/17 22:00 03/21/17 21:59 02/20/17 09:09 Metoprolol Succinate (Toprol XL) 50 mg DAILY ORAL 02/20/17 09:00 03/22/17 08:59 02/20/17 09:09 Ondansetron HCl (Zofran) 4 mg Q6H PRN IVP Nausea & Vomiting 02/19/17 06:00 03/21/17 05:59 Polyethylene Glycol (Miralax) 17 gm DAILYPRN PRN ORAL Constipation 02/20/17 00:00 03/22/17 00:00 Pregabalin (Lyrica) 75 mg BID ORAL 02/19/17 09:00 03/21/17 08:59 02/20/17 09:10 Temazepam (Restoril) 15 mg HSPRN PRN ORAL Insomnia 02/20/17 00:00 02/27/17 00:00 ROBERT NGUYEN Feb 20, 2017 12:18
[2017-02-20] MEDS ORDERED: COUMADIN5 MG ORAL (14:11)
--- NOTE | 2017-02-20 14:31 | Nephrology Progress Note ---
Assessment/Plan Assessment 1) CKD IV 2) Acute exacerbation of systolic CHF 3) DM 4) CAD Plan: Agree with diuresis Lovenox is contrindicated in CKD IV He needs to be on Coumadin, suggest heparin drip as a bridge Subjective Subjective He is doing ok, the TTE is suggesting apical LV thrombus, still good diuresis, has been started on Lovenox Objective Objective Last 24 Hour Vital Signs Date Time Temp Pulse Resp B/P (MAP) Pulse Ox O2 Delivery O2 Flow Rate FiO2 02/20/17 11:29 98.1 90 18 132/70 96 Room Air 02/20/17 09:09 122/68 02/20/17 09:09 92 122/68 02/20/17 08:00 91 02/20/17 07:51 97.2 92 18 122/68 97 Room Air 02/20/17 07:50 92 16 Room Air 21 02/20/17 04:00 97.3 96 20 130/75 95 Room Air 02/20/17 04:00 90 02/20/17 00:00 95 02/20/17 00:00 97.3 95 20 131/75 93 Room Air 02/19/17 22:14 100 134/72 02/19/17 22:13 134/72 02/19/17 20:00 98.2 100 21 134/72 93 Room Air 02/19/17 20:00 97 02/19/17 19:30 102 16 Room Air 21 02/19/17 16:00 100 02/19/17 15:44 97.9 100 18 137/71 96 Nasal Cannula 3.0 Intake and Output 02/20/17 02/21/17 18:59 06:59 Intake Total 240 ml Output Total 300 ml Balance -60 ml Intake Oral 240 ml Output Urine Total 300 ml Height (Feet): 5 Height (Inches): 9.00 Weight (Pounds): 159 General Appearance: WD/WN, no apparent distress EENT: normal ENT inspection Neck: non-tender, normal alignment Cardiovascular: regular rhythm, JVD - high 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
[2017-02-20] MEDS ORDERED: LOVENOX10 M2 SUBQ (14:40)
[2017-02-20] MEDS ORDERED: LOVENOX60 MG/0.6 SUBQ (14:40)
[2017-02-20 15:30] VITALS: BP 121/71
[2017-02-20] MEDS ORDERED: Heparin 25,000u/D5W 500ml 500 ML IV SCH (21:00)
[2017-02-20] MEDS ORDERED: Enoxaparin 80mg Inj SUBQ SCH (23:00)
--- NOTE | 2017-02-21 00:31 | Consultation ---
DATE OF CONSULTATION: 02/19/2017 CARDIOLOGY CONSULTATION: CONSULTING PHYSICIAN: Livan Mancini M.D. REQUESTING PHYSICIAN: Poly Osorio M.D. REASON FOR CONSULTATION: Cardiomyopathy with possible ventricular thrombus. HISTORY OF PRESENT ILLNESS: This is a 66-year-old [place] male with a known history of a dilated ischemic cardiomyopathy. Several months ago, he had a percutaneous coronary intervention and had postoperative renal failure and refractory heart failure requiring hemodialysis for some time. He did subsequently improve under Dr. Clement's care and has been off the hemodialysis for the last few months. The patient has remained at a [facility] facility for [facility]. He was hospitalized here in November under my care with a heart failure exacerbation and improved following adjustments of his anti-failure drugs. The patient states that over the past week or more, he has had a nightly sandwich, which he describes as has been limited options at his facility and he has been hungry at night prompting him to eat this food. He has been progressively short of breath and presented to the hospital last night with severe shortness of breath and hypoxia. He was placed on BiPAP support and started on intravenous diuresis with good clinical response. PAST MEDICAL HISTORY: 1. Prostate cancer. 2. Chronic kidney disease. 3. Chronic obstructive pulmonary disease. 4. Type 2 diabetes mellitus. 5. Diabetic neuropathy. 6. Hypertension. 7. History of compression fracture. 8. Hyperlipidemia. 9. Prostatic hypertrophy. ALLERGIES: No allergies. FAMILY HISTORY: Noncontributory. SOCIAL HISTORY: A 50 plus pack year smoker, advanced directives for DNI. No alcohol or substance abuse. REVIEW OF SYSTEMS: A 10-point review of systems was performed. All systems negative other than noted above. PHYSICAL EXAMINATION: VITAL SIGNS: Blood pressure is 134/72, pulse 100, respiratory rate 21, and afebrile. Room air oxygen saturation is 93%. NECK: Jugular venous pressure is greater than 10. LUNGS: With few rales bilaterally. CARDIAC: Point of maximum pulse laterally displaced and diffuse. Regular rhythm and rate. Normal S1 and S2. A 1/6 apical murmur. ABDOMEN: Soft. EXTREMITIES: With no edema. AV graft site with no signs of secondary infection. DIAGNOSTIC AND LABORATORY DATA: EKG with sinus tachycardia and nonspecific ST change. White count is 10.6 and hemoglobin 14.2. Troponin is negative. BUN is 64, creatinine 2.1, and potassium 4.5 Pro-natriuretic peptide on admission was 5183. An echocardiogram done yesterday revealed global hypokinesis, ejection fraction 35%, apical thrombus, moderate mitral regurgitation, and PA systolic pressure 17. IMPRESSION: 1. Acute on chronic systolic and diastolic congestive heart failure. 2. Ischemic cardiomyopathy. 3. Chronic kidney disease. 4. History of hemodialysis. 5. Left ventricular thrombus. PLAN: 1. We will review echocardiogram. 2. For now, initiate high-dose Lovenox. 3. Continue dual anti-platelet therapy. 4. Continue intravenous diuretic therapy. 5. Up titrate anti-failure regimen including hydralazine, nitrates, and beta-blockers with limits based on blood pressure parameters. Thank you for this consultation. We will probably need to initiate warfarin if thrombus is confirmed. Livan Mancini M.D. DR: Ann JOB#: [id number] CC:
--- NOTE | 2017-02-21 15:58 | Discharge Summary ---
Discharge Summary Hospital Course Date of Admission Feb 17, 2017 at 23:50 Date of Discharge Feb 20, 2017 at 15:45 Admitting Diagnosis respiratory distress, DNR on bipap HPI Yehuda Ríos is a 66 year old male who was admitted on Feb 17, 2017 at 23:50 for Respiratory Distress, Dnr On Bipap Hospital Course [id number] Discharge Discharge Disposition Patient was discharged to SNF/Subacute Facility(03) Discharge Diagnoses: Mirna Sheriff ORCHESTRA TEACHER Feb 21, 2017 15:58
--- NOTE | 2017-02-22 06:32 | Progress Note ---
DATE: 02/20/2017 CARDIOLOGY PROGRESS NOTE SUBJECTIVE: The case was discussed with the rework machine operator. The patient is started on full anticoagulation due to the presence of an apical left ventricular thrombus. OBJECTIVE: VITAL SIGNS: Blood pressure 132/70, pulse 90, and respirations 18. NECK: Supple. Jugular venous pressure elevated. LUNGS: With few rales. CARDIAC: Regular rhythm and rate. Normal S1 and S2. A 1/6 systolic apical murmur. EXTREMITIES: No edema. IMPRESSION: 1. Acute on chronic systolic and diastolic congestive heart failure. 2. Ischemic cardiomyopathy. 3. Chronic kidney disease with history of hemodialysis. 4. Type 2 diabetes mellitus. 5. Left ventricular thrombus. PLAN: 1. Full anticoagulation with apixaban. 2. Discontinue Plavix. 3. Maintenance dose diuretic with titration as an outpatient. 4. Continue current anti-failure regimen with losartan and carvedilol. Livan Mancini M.D. DR: PHU JOB#: [id number] CC:
--- NOTE | 2017-02-23 01:45 | Discharge Summary 2 SIG ---
DATE OF ADMISSION: 02/17/2017 DATE OF DISCHARGE: 02/20/2017 CONSULTANTS: 1. Livan Mancini M.D. 2. Timoteo Clement M.D. BRIEF HOSPITAL COURSE: The patient is a 66-year-old male with history of congestive heart failure, renal insufficiency, brought in from [facility] due to shortness of breath. On evaluation at ED, the patient was placed on BiPAP and was given diuresis. Workup showed leukocytosis. WBC was elevated to 18. He came in with a POLST that has DNR. Chest x-ray done showed cardiomegaly with bilateral pleural effusion, cannot fully evaluate right lower lobe infiltrate. He was tachycardic at a rate of 110. He was admitted to [facility] for pulmonary edema, respiratory failure, heart failure, and kidney failure. The patient has an underlying chronic kidney disease with baseline serum creatinine in the range of 2.3 to 2.4 with GFR 21 to 25 mL per minute. He also has systolic cardiomyopathy with low ejection fraction. He had swelling of legs and was diuresed with Lasix. He had history of dilated ischemic cardiomyopathy and several months ago had percutaneous coronary intervention with postoperative renal failure and refractory heart failure requiring hemodialysis at that time and has been off dialysis for last few months. BNP was 5183 and echocardiogram showed global hypokinesis with ejection fraction of 35%, apical thrombus, moderate mitral regurgitation, and PA systolic pressure of 17. He was given high dose Lovenox and dual antiplatelet therapy. He was taken off BIPAP and was saturating well on NC. He was eventually discharged back to [facility]. FINAL DIAGNOSES: 1. Acute on chronic respiratory failure requiring BiPAP. 2. Acute on chronic systolic and diastolic congestive heart failure. 3. Severe protein-calorie malnutrition. 4. Chronic kidney disease stage 4. 5. Diabetes mellitus. 6. Coronary artery disease. 7. Left apical thrombus. 8. History of hemodialysis. 9. Ischemic cardiomyopathy. DISPOSITION: The patient was discharged to SNF. DISCHARGE MEDICATIONS: Refer to medication list. Poly Osorio M.D. I have been assigned to dictate discharge summary on this account and I was not involved in the patient's management. Mirna Sheriff N.P. DR: Elena JOB#: [id number] CC: RADHA
== END 2017-02-20 15:45 | DRG 291 ==
LOC: EDBD 23:21 → EMR 23:42 → 2W 23:50 → EDBEDREQ 02-18 00:53 → 2E 02-19 00:45
DX: I50.43 Acute on chronic combined systolic (congestive) and diastolic (congestive) heart failure (principal); J96.20 Acute and chronic respiratory failure, unspecified whether with hypoxia or hypercapnia; E43 Unspecified severe protein-calorie malnutrition; N18.4 Chronic kidney disease, stage 4 (severe); J44.9 Chronic obstructive pulmonary disease, unspecified; E11.40 Type 2 diabetes mellitus with diabetic neuropathy, unspecified; C61 Malignant neoplasm of prostate; Z68.23 Body mass index [BMI] 23.0-23.9, adult; I25.5 Ischemic cardiomyopathy; N40.0 Benign prostatic hyperplasia without lower urinary tract symptoms; E78.5 Hyperlipidemia, unspecified; I25.2 Old myocardial infarction; I25.10 Atherosclerotic heart disease of native coronary artery without angina pectoris; Z98.61 Coronary angioplasty status
CPT/HCPCS: 36415; 36600; 71010; 76775; 80048; 80053; 80069; 81001; 82043; 82550; 82553; 82570; 82803; 82962; 83605; 83690; 83880; 84484; 85007; 85025; 85610; 85730; 87040; 87081; 93005; 93306; 93970; 94660; 94664; J1815